=== PATIENT | male | born 1995 ===

== ENCOUNTER 2020-12-17 18:00 | Inpatient (IN) | payer SELFPAY ==
--- NOTE | 2020-12-17 18:31 | Event Note ---
ED Screening Note ED Screening Note: Patient is a 25-year-old male presents emergency room with complaints of URI symptoms that began a week ago He states he began feeling short of breath 3 days ago He has associated pain with breathing He states he also has some chest tightness He did not get vaccinated for COVID-19 No known past medical history No allergies to medicines He is a tobacco smoker He endorses alcohol use Upon ambulating patient his oxygen saturation drops to 88% and his heart rate increases to 120 On exam he has poor inspiration, no wheezing, no rales This initial assessment/diagnostic orders/clinical plan/treatment(s) is/are subject to change based on patients health status, clinical progression and re- assessment by fellow clinical providers in the ED. Further treatment and workup at subsequent clinical providers discretion. Patient/guardian urged not to elope from the ED as their condition may be serious if not clinically assessed and managed. Initial orders include: Labs, x-ray Patient placed on oxygen via nasal cannula Charge nurse Brigid informed patient needs room SAL
[2020-12-17 18:47] LABS: Basophils % (Auto) 0.1 % (0.0-1.8); Hematocrit 44.5 % (35.5-45.6); Hemoglobin 15.7 gm/dl (11.8-15.2); Lymphocytes # (Auto) 0.9 K/mm3 (1.2-5.4); Lymphocytes % (Auto) 18.6 % (13.4-35.0); Mean Corpuscular HGB Conc 35 % (32-34); Mean Corpuscular Volume 88 fl (84-94); Monocytes # (Auto) 0.4 K/mm3 (0.0-0.8); Monocytes % (Auto) 8.1 % (0.0-7.3); Platelet Count 171 K/mm3 (140-440); Red Blood Count 5.06 M/mm3 (3.65-5.03); Red Cell Distribution Width 12.9 % (13.2-15.2)
[2020-12-17 19:09] LABS: Alanine Aminotransferase 23 units/L (7-56); Albumin 3.9 g/dL (3.9-5); BUN/Creatinine Ratio 15; Blood Urea Nitrogen 12 mg/dL (9-20); Hemolysis Index 9
--- NOTE | 2020-12-17 19:15 | XRay Report ---
Chest 2 views INDICATION: Dyspnea IMPRESSION: Severe multifocal bilateral airspace pneumonia present. Suspect right-sided hilar adenopa thy. Close follow-up recommended. The heart size is normal. Signer Name: Eddi Tang MD Signed: 12/17/2020 7:10 PM Workstation Name: [id number]
[2020-12-17] MEDS ORDERED: dexAMETHasone 4 MG/ML VIAL IV ONE ×2 (19:20→21:30)
[2020-12-17] MEDS ORDERED: ACETAMINOPHEN 325 MG TAB PO ONE ×2 (19:20→21:30)
[2020-12-17] MEDS ORDERED: SODIUM CHLORIDE 0.9% 1000 ML 1,000 ML IV ONE (19:20)
[2020-12-17] MEDS ORDERED: AZITHROMYCIN/NS 500 MG/250 ML 500 MG/250 ML BAG IV ONE (19:20)
[2020-12-17] MEDS ORDERED: cefTRIAXone/NS 2 GM/100 ML 2 GM/100 ML BAG IV ONE (19:20)
[2020-12-17] MEDS ORDERED: KETOROLAC 30 MG/1 ML INJ IM ONE (21:42)
--- NOTE | 2020-12-17 21:52 | Emergency Department Report ---
HPI - General Chief Complaint: Dyspnea/Respdistress Time Seen by Provider: 12/17/20 18:28 - HPI HPI: 25-year-old male with no known past medical history presents complaining of 1 week of URI symptoms and 3 days of progressive shortness of breath. The patient states that approximately 1 week ago he began to experience fevers, body aches, headaches, diarrhea, and loss of his sense of smell and taste. These symptoms improved but then over the past 3 days he has developed a dry cough with worsening shortness of breath which is especially severe during exertion. The reason he came to the ER today was because of the shortness of breath. He is not vaccinated against COVID-19. There are no known aggravating or alleviating factors. He denies any associated vision change, neck pain, back pain, abdominal pain, nausea/vomiting, constipation, dysuria, focal weakness, sensory changes, leg swelling, or any other complaints. ED Past Medical Hx - Past Medical History Previous Medical History?: No - Social History Smoking Status: Current Every Day Smoker Substance Use Type: Alcohol ED Review of Systems ROS: Stated complaint: HARD TO BREATHE Other details as noted in HPI Constitutional: chills, fever, malaise Eyes: denies: eye pain, vision change ENT: denies: throat pain, congestion Respiratory: cough, shortness of breath, SOB with exertion Cardiovascular: denies: chest pain, palpitations, edema Gastrointestinal: diarrhea. denies: abdominal pain, nausea, vomiting, constipation Genitourinary: denies: dysuria, frequency Musculoskeletal: myalgia. denies: joint swelling, arthralgia Skin: denies: rash, lesions Neurological: headache. denies: weakness, numbness, paresthesias, abnormal gait Psychiatric: denies: anxiety Physical Exam - Physical Exam Vital Signs: Vital Signs 12/17/20 18:21 Temperature 99.7 F H Pulse Rate 110 H Respiratory 22 Rate Blood Pressure 140/85 O2 Sat by Pulse 95 Oximetry Physical Exam: GENERAL: Well developed and well nourished. No acute distress HEAD: Normocephalic. No obvious signs of trauma. ENT: Dry mucous membranes. EYES: Extraocular movements are intact. Pupils are equal round and reactive to light bilaterally NECK: Supple. Full ROM is intact. Trachea is midline. LUNGS: Tachypneic but not in respiratory distress. Equal chest rise bilate rally. There are scattered crackles, rhonchi, and wheezes throughout the bilateral lung bradshaw. CARDIOVASCULAR: Tachycardic but with regular rhythm. No murmurs or rubs. VASCULAR: Cap refill < 2 seconds. Trace edema bilaterally ABDOMEN: Abdomen is soft and nondistended. There is no significant tenderness, guarding or rebound. SKIN: Skin is warm and dry NEURO: Patient is awake, alert, and oriented. 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 No focal deficits. Normal motor and sensory exam throughout. Normal speech. MUSCULOSKELETAL: No obvious deformities. No significant tenderness. Normal ROM throughout. BACK/SPINE: No costovertebral angle tenderness. Exam ED Course Vital Signs 12/17/20 18:21 Temperature 99.7 F H Pulse Rate 110 H Respiratory 22 Rate Blood Pressure 140/85 O2 Sat by Pulse 95 Oximetry ED Medical Decision Making - Lab Data Result diagrams: 12/17/20 18:34 12/17/20 21:58 - Radiology Data Chest 2 views INDICATION: Dyspnea IMPRESSION: Severe multifocal bilateral airspace pneumonia present. Suspect right-sided hilar adenopathy. Close follow- up recommended. The heart size is normal. Signer Name: Eddi Tang MD Signed: 12/17/2020 6:10 PM Workstation Name: [id number] - Medical Decision Making 25-year-old male with no past medical history presents complaining of 1 week of URI symptoms and 3 days of progressive shortness of breath with dry cough. Patient has lost his sense of smell and taste. He is not vaccinated against COVID-19. Initial assessment, the patient is afebrile but with elevated heart rate of 110. His oxygen saturation on room air was 95% but with ambulation dropped to 88%. Oxygen was applied via nasal cannula. On physical exam, the patient has dry mucous membranes. He is tachypneic but not in respiratory distress. Lung auscultation reveals coarse breath sounds with scattered crackles and rhonchi throughout. He has no abdominal or CVA tenderness. He has no peripheral edema. Labs were drawn in triage and reveal no significant leukopenia/leukocytosis and elevated hemoglobin of 15.7 likely due to hemoconcentration due to dehydration. Kidney function is normal and there are no significant electrolyte abnormalities. Chest x-ray was performed and reveals severe multifocal bilateral airspace pneumonia present with suspected right- sided hilar adenopathy. Although the patient's symptoms and presentation suggests COVID-19 pneumonia, the hilar adenopathy is atypical and could be commercial sales representative of bacterial pneumonia as well. Patient was given 1 L of IV f luids, IV ceftriaxone, azithromycin, and dexamethasone. I have added on the sepsis order set with cultures. I have also added the COVID-19 order set including D-dimer to determine need for CTA. I have ordered Toradol because the patient says he has a mild headache. On repeat assessment at 11 PM the patient states he feels unchanged from when he first arrived. He is not in any acute distress. Further labs have returned revealing elevated CRP, ferritin, and LDH. However, lactate is normal and D-dimer is negative. I discussed with the patient the need for admission for supplemental oxygen, IV antibiotics, and further treatments for Covid if confirmed. The patient expressed understanding and agreement with the plan of care. At 11:15 PM I spoke with Bharati, the nurse practitioner working in conjunction with the on-call hospitalist Dr. Chambers regarding the case. The patient is acce pted for admission and the hospitalist team will assume care. Critical Care Time: Yes Critical care time in (mins) excluding proc time.: 40 Critical care attestation.: If time is entered above; I have spent that time in minutes in the direct care of this critically ill patient, excluding procedure time. Critical care time was spent in the evaluation/assessment, work-up, and management of suspected COVID-19 and bilateral pneumonia with hypoxia requiring supplemental oxygen, IV antibiotics and fluids, and frequent reevaluation and reassessment. ED Disposition Clinical Impression: Bilateral pneumonia, Suspected COVID-19 virus infection, Hypoxia Disposition: ADMITTED INPATIENT Is pt being admited?: Yes Condition: Fair
[2020-12-17 22:38] LABS: C-Reactive Protein 7.5 mg/dL (0.00-1.30)
[2020-12-17] MEDS ORDERED: ONDANSETRON 4 MG/2 ML INJ IV PRN (23:43)
[2020-12-17] MEDS ORDERED: ACETAMINOPHEN 325 MG TAB PO PRN (23:46)
[2020-12-17] MEDS ORDERED: ALBUTEROL 8.5 GM MDI INHALATION IH PRN (23:49)
--- NOTE | 2020-12-17 23:52 | History and Physical Report ---
History of Present Illness Date of examination: 12/17/20 Date of admission: 12/17/2020 Chief complaint: Shortness of breath, generalized weakness History of present illness: 25-year-old male who is an ongoing smoker with no past medical history who presents to [facility] ED with complaints of flu like symptoms and shortness of breath. Patient states that he has been experiencing fever, chills, body aches, diarrhea, loss of smell and taste x1 week. Approximately 3 days ago he developed progressively worsening shortness of breath at rest and exacerbated with exertion. Endorses none productive cough with associated pleuritic chest pain. Denies obstructive/restrictive lung disease. Patient is concerned that he has Covid 19, and decided to come in the ED for further evaluation and treatment. Denies constipation, abdominal pain, palpitations, chest pain, alterations in vision, recent fall/injury, sputum production, hemoptysis, hematemesis, melena, or known recent sick contacts Past History Past Surgical History: No surgical history Social history: single, lives with family, smoking, full code Family history: no significant family history Medications and Allergies Allergies Allergy/AdvReac Type Severity Reaction Status Date / Time No Known Allergies Allergy Verified 12/17/20 21:27 Review of Systems All systems: negative (As noted in HPI) Exam - Physical Exam Narrative exam: Physical exam General appearance: Present: Mild discomfort,, alert and oriented 3, adult male - EENT Eyes: Present: PERRL, EOM intact ENT: hearing intact, normal dentition - Neck Neck: Present: supple, normal ROM - Respiratory Respiratory effort: Non-labored, on 3 L supplemental oxygen Respiratory: Coarse breath sounds - Cardiovascular Heart rate: 110 (bpm) Rhythm: Sinus tachycardia Heart Sounds: Present: S1 & S2. Absent: rub, click - Extremities Extremities: no ischemia, pulses intact, - Peripheral Assessment Peripheral Pulses: within normal limits - Abdominal General gastrointestinal: soft, non-tender, normal bowel sounds - Integumentary Integumentary: Present: warm, dry - Musculoskeletal Musculoskeletal: Able to move all extremities -Neurological Neurological: CN II-XII intact - Psychiatric Psychiatric: cooperative - Constitutional Vitals: Temp Pulse Resp BP Pulse Ox 99.7 F H 110 H 18 140/85 95 12/17/20 18:21 12/17/20 18:21 12/17/20 21:39 12/17/20 18:21 12/17/20 18:21 Results - Labs CBC & Chem 7: 12/17/20 18:34 12/17/20 21:58 Labs: Laboratory Last Values WBC 4.9 K/mm3 (4.5-11.0) 12/17/20 18:34 RBC 5.06 M/mm3 (3.65-5.03) H 12/17/20 18:34 Hgb 15.7 gm/dl (11.8-15.2) H 12/17/20 18:34 Hct 44.5 % (35.5-45.6) 12/17/20 18:34 MCV 88 fl (84-94) 12/17/20 18:34 MCH 31 pg (28-32) 12/17/20 18:34 MCHC 35 % (32-34) H 12/17/20 18:34 RDW 12.9 % (13.2-15.2) L 12/17/20 18:34 Plt Count 171 K/mm3 (140-440) 12/17/20 18:34 Lymph % (Auto) 18.6 % (13.4-35.0) 12/17/20 18:34 [place] % (Auto) 8.1 % (0.0-7.3) H 12/17/20 18:34 Eos % (Auto) 0.0 % (0.0-4.3) 12/17/20 18:34 Baso % (Auto) 0.1 % (0.0-1.8) 12/17/20 18:34 Lymph # (Auto) 0.9 K/mm3 (1.2-5.4) L 12/17/20 18:34 [place] # (Auto) 0.4 K/mm3 (0.0-0.8) 12/17/20 18:34 Eos # (Auto) 0.0 K/mm3 (0.0-0.4) 12/17/20 18:34 Baso # (Auto) 0.0 K/mm3 (0.0-0.1) 12/17/20 18:34 Seg Neutrophils % 73.2 % (40.0-70.0) H 12/17/20 18:34 Seg Neutrophils # 3.6 K/mm3 (1.8-7.7) 12/17/20 18:34 D-Dimer 227.16 ng/mlDDU (0-234) 12/17/20 21:58 Sodium 136 mmol/L (137-145) L 12/17/20 18:34 Potassium 4.1 mmol/L (3.6-5.0) 12/17/20 18:34 Chloride 99.0 mmol/L (98-107) 12/17/20 18:34 Carbon Dioxide 25 mmol/L (22-30) 12/17/20 18:34 Anion Gap 16 mmol/L 12/17/20 18:34 BUN 12 mg/dL (9-20) 12/17/20 18:34 Creatinine 0.8 mg/dL (0.8-1.3) 12/17/20 18:34 Estimated GFR > 60 ml/min 12/17/20 18:34 BUN/Creatinine Ratio 15 % 12/17/20 18:34 Glucose 104 mg/dL (75-100) H 12/17/20 21:58 Lactic Acid 1.50 mmol/L (0.7-2.0) 12/17/20 21:58 Calcium 9.0 mg/dL (8.4-10.2) 12/17/20 18:34 Ferritin 481.5 ng/mL (30.0-300.0) H 12/17/20 21:58 Total Bilirubin 0.40 mg/dL (0.1-1.2) 12/17/20 18:34 AST 33 units/L (5-40) 12/17/20 18:34 ALT 23 units/L (7-56) 12/17/20 18:34 Alkaline Phosphatase 64 units/L (35-129) 12/17/20 18:34 Lactate Dehydrogenase 272 units/L (91-180) H 12/17/20 21:58 C-Reactive Protein 7.50 mg/dL (0.00-1.30) H 12/17/20 21:58 Total Protein 7.8 g/dL (6.3-8.2) 12/17/20 18:34 Albumin 3.9 g/dL (3.9-5) 12/17/20 18:34 Albumin/Globulin Ratio 1.0 % 12/17/20 18:34 - Imaging and Cardiology Imaging and Cardiology: CXR: INDICATION: Dyspnea IMPRESSION: Severe multifocal bilateral airspace pneumonia present. Suspect right-sided hilar adenopathy. Close follow-up recommended. The heart size is normal. Assessment and Plan Assessment and plan: Suspected COVID-19 viral infection -Complains of upper respiratory flulike symptoms x1 week, and worsening dyspnea x2 days -Unvaccinated -PCR pending -Inflammatory markers elevated -Follow-up on lab -Start zinc and vitamin D - ID consulted -May consider starting on Decadron if patient requires >4L supplemental oxygen Bilateral pneumonia -Chest x-ray shows Severe multifocal bilateral airspace pneumonia present -Started on IV azithromycin and Rocephin -Cultures pending Acute hypoxic respiratory failure -No Baseline home oxygen requirements -Saturation of 86 to percent on room air -Currently on 3L continuous supplemental O2 -Monitor saturations -Continue supplemental oxygen wean as tolerated -Albuterol MDI as needed Nicotine dependence -Current every day smoker -Counseled for cessation -Refused nicotine patch DVT PPX -on Lovenox Advance Directives: No VTE prophylaxis?: Chemical, Mechanical Plan of care discussed with patient/family: Yes
[2020-12-18] MEDS: guaiFENesin ER 600 MG TAB PO SCH ×2 (09:31→22:40)
[2020-12-18] MEDS: ZINC SULFATE 220 MG CAP PO SCH (09:31)
[2020-12-18] MEDS: ENOXAPARIN 40 MG/0.4 ML INJ SUB-Q SCH (09:31)
[2020-12-18] MEDS: DOCUSATE SODIUM 100 MG CAP PO SCH ×2 (09:31→22:40)
[2020-12-18] MEDS: CHOLECALCIFEROL (VIT D3) 5,000 UNIT TAB PO SCH (16:00)
--- NOTE | 2020-12-18 16:02 | Consultation ---
History of Present Illness - Reason for Consult Consult date: 12/18/20 - History of Present Illness 25-year-old male past medical history nicotine abuse presented to hospital complaining of shortness of breath. This is associated with fevers, chills, myalgias, typical Covid symptoms. Is shortness of breath became presently worse approximately 3 days ago. He was concerned that he contracted Covid, and as such came to the hospital. Afebrile since admission with a white count of 4.9. Covid positive. Normal renal function. Procalcitonin is pending. Elevated inflammatory markers. Cul tures no growth so far. Currently on ceftriaxone and azithromycin. Imaging personally reviewed: Chest x-ray: Severe multifocal bilateral airspace pneumonia. Review of systems: Deferred to reduce to the risk of transmission of COVID-19 Past History Past Surgical History: No surgical history Social history: single, lives with family, smoking, full code Family history: no significant family history Medications and Allergies Allergies Allergy/AdvReac Type Severity Reaction Status Date / Time No Known Allergies Allergy Verified 12/17/20 21:27 Active Meds: Active Medications Acetaminophen (Acetaminophen 325 Mg Tab) 650 mg PO Q4H PRN PRN Reason: Pain MILD(1-3)/Fever >100.5/ARCOS Albuterol (Albuterol 8.5 Gm Mdi Inhalation) 2 puff IH Q4HRT PRN PRN Reason: Shortness Of Breath Cholecalciferol (Cholecalciferol (Vit D3) 5,000 Unit Tab) 5,000 unit PO DAILY [facility] Docusate Sodium (Docusate Sodium 100 Mg Cap) 100 mg PO BID RACHEL Last Admin: 12/18/20 09:31 Dose: 100 mg Documented by: Enoxaparin Sodium (Enoxaparin 40 Mg/0.4 Ml Inj) 40 mg SUB-Q DAILY RACHEL; Protocol Last Admin: 12/18/20 09:31 Dose: 40 mg Documented by: Guaifenesin (Guaifenesin Er 600 Mg Tab) 600 mg PO BID RACHEL Last Admin: 12/18/20 09:31 Dose: 600 mg Documented by: Azithromycin (Zithromax/Ns) 500 mg in 250 mls @ 250 mls/hr IV Q24H RACHEL Stop: 12/21/20 22:59 Ceftriaxone Sodium (Rocephin/Ns 1 Gm/50 Ml) 1 gm in 50 mls @ 100 mls/hr IV Q24H [facility]; Protocol Stop: 12/21/20 22:29 Ondansetron HCl (Ondansetron 4 Mg/2 Ml Inj) 4 mg IV Q6H PRN PRN Reason: Nausea And Vomiting Oxycodone/Acetaminophen (Oxycodone /Acetaminophen 5-325mg Tab) 1 tab PO Q6H PRN PRN Reason: Pain, Moderate (4-6) Sodium Chloride (Sodium Chloride 0.9% 10 Ml Flush Syringe) 10 ml IV BID [facility] Last Admin: 12/18/20 09:31 Dose: 10 ml Documented by: Sodium Chloride (Sodium Chloride 0.9% 10 Ml Flush Syringe) 10 ml IV PRN PRN PRN Reason: LINE FLUSH Zinc Sulfate (Zinc Sulfate 220 Mg Cap) 220 mg PO QDAY [facility] Last Admin: 12/18/20 09:31 Dose: 220 mg Documented by: Physical Examination - Physical Exam Narrative exam: Physical exam deferred to reduce risk of transmission of COVID-19. Please refer to primary team's note. - Constitutional Vitals: Vital Signs Temp Pulse Resp BP Pulse Ox 98.6 F 67 26 H 115/70 98 12/18/20 15:19 12/18/20 14:00 12/18/20 14:00 12/18/20 14:00 12/18/20 14:00 Temperature -Last 24 Hours Temperature 98.6 F Temperature 97.8 F Temperature 99.7 F Results - Labs CBC & Chem 7: 12/17/20 18:34 12/17/20 21:58 Labs: Abnormal lab results 12/17/20 12/17/20 12/17/20 Range/Units 18:34 18:34 21:58 RBC 5.06 H (3.65-5.03) M/mm3 Hgb 15.7 H (11.8-15.2) gm/dl MCHC 35 H (32-34) % RDW 12.9 L (13.2-15.2) % [place] % (Auto) 8.1 H (0.0-7.3) % Lymph # (Auto) 0.9 L (1.2-5.4) K/mm3 Seg Neutrophils % 73.2 H (40.0-70.0) % Sodium 136 L (137-145) mmol/L Glucose 124 H 104 H (75-100) mg/dL Lactic Acid (0.7-2.0) mmol/L Ferritin (30.0-300.0) ng/mL Lactate Dehydrogenase 272 H (91-180) units/L C-Reactive Protein 7.50 H (0.00-1.30) mg/dL Coronavirus (PCR) (Negative) 12/17/20 12/18/20 12/18/20 Range/Units 21:58 00:22 Unknown RBC (3.65-5.03) M/mm3 Hgb (11.8-15.2) gm/dl MCHC (32-34) % RDW (13.2-15.2) % [place] % (Auto) (0.0-7.3) % Lymph # (Auto) (1.2-5.4) K/mm3 Seg Neutrophils % (40.0-70.0) % Sodium (137-145) mmol/L Glucose (75-100) mg/dL Lactic Acid 2.10 H* (0.7-2.0) mmol/L Ferritin 481.5 H (30.0-300.0) ng/mL Lactate Dehydrogenase (91-180) units/L C-Reactive Protein (0.00-1.30) mg/dL Coronavirus (PCR) Positive A (Negative) Assessment and Plan Cultures: Blood culture no growth so far Covid PCR:positive A/P: 25-year-old man past medical history nicotine abuse admitted with COVID-19 #Severe COVID-19 pneumonia: Patient presented with a week of symptoms, chest x- ray with diffuse bilateral infiltrates. Inflammatory markers elevated #Acute hypoxemic respiratory failure: Likely secondary to COVID-19 infection. Recs: -If hypoxic recommend starting steroids for 10 days -If requiring supplemental oxygen recommend Remdesivir for 5 days -Follow-up procalcitonin, stop antibiotics if <0.25 -Anticoagulation per hospital protocol -Proning as able Thank you for the consult, we will continue to follow. MD [facility] ([facility] O: [phone] F: [phone]
--- NOTE | 2020-12-18 18:55 | Progress Note ---
Assessment and Plan Assessment and plan: 25-year-old male who is an ongoing smoker with no past medical history who presents to [facility] ED with complaints of flu like symptoms and shortness of breath. Patient states that he has been experiencing fever, chills, body aches, diarrhea, loss of smell and taste x1 week. Approximately 3 days ago he developed progressively worsening shortness of breath at rest and exacerbated with exertion. Endorses none productive cough with associated pleuritic chest pain. Denies obstructive/restrictive lung disease. Patient is concerned that he has Covid 19, and decided to come in the ED for further evaluation and treatment. COVID-19 viral infection -Complains of upper respiratory flulike symptoms x1 week, and worsening dyspnea x2 days -Unvaccinated -Inflammatory markers elevated -Follow-up on lab -Start zinc and vitamin D - ID consulted -on Decadron Bilateral pneumonia -Chest x-ray shows Severe multifocal bilateral airspace pneumonia present -Started on IV azithromycin and Rocephin -Cultures pending Acute hypoxic respiratory failure -No Baseline home oxygen requirements -Saturation of 86 to percent on room air -Currently on 5L continuous supplemental O2 -Monitor saturations -Continue supplemental oxygen wean as tolerated -Albuterol MDI as needed Nicotine dependence -Current every day smoker -Counseled for cessation -Refused nicotine patch DVT PPX -on Lovenox 12/18/2020: Patient reports the onset of symptoms since 10 days and shortness of breath since 3 days. He is anorexic with cough and dyspnea. Poorly eating. O2 increased from 3 to 5 L currently. Has significant dyspnea with conversation. Patient will be monitored closely for worsening hypoxia and respiratory compensation. Continue supplemental oxygen, Decadron and incentive spirometry as tolerated. Consider remdesivir. ID consulted. Discussed with the patient and the nursing staff. History Interval history: Patient reports the onset of symptoms since 10 days and the dizziness since 3 days. He is anorexic with cough and dyspnea. Poorly eating. O2 increased from 3 to 5 L currently. Has significant dyspnea with conversation. Hospitalist Physical - Constitutional Vitals: Temp Pulse Resp BP Pulse Ox 98.6 F 98 H 17 133/82 95 12/18/20 15:19 12/18/20 17:00 12/18/20 17:00 12/18/20 17:00 12/18/20 17:00 General appearance: Present: well-nourished, other (Anxious at multiple respiratory distress) - EENT Eyes: Present: PERRL, EOM intact ENT: clear oral mucosa - Neck Neck: Present: supple. Absent: masses or JVD - Respiratory Respiratory effort: labored, other (Mild to moderate respiratory distress with conversation) Respiratory: bilateral: diminished - Cardiovascular Rhythm: regular - Extremities Extremities: No edema Peripheral Pulses: within normal limits - Abdominal General gastrointestinal: soft, non-tender, non-distended, normal bowel sounds - Integumentary Integumentary: Absent: rash - Psychiatric Psychiatric: other (Anxious) - Neurologic Neurologic: no focal deficits Results - Labs CBC & Chem 7: 12/17/20 18:34 12/20/20 04:56 Labs: Laboratory Last Values WBC 4.9 K/mm3 (4.5-11.0) 12/17/20 18:34 RBC 5.06 M/mm3 (3.65-5.03) H 12/17/20 18:34 Hgb 15.7 gm/dl (11.8-15.2) H 12/17/20 18:34 Hct 44.5 % (35.5-45.6) 12/17/20 18:34 MCV 88 fl (84-94) 12/17/20 18:34 MCH 31 pg (28-32) 12/17/20 18:34 MCHC 35 % (32-34) H 12/17/20 18:34 RDW 12.9 % (13.2-15.2) L 12/17/20 18:34 Plt Count 171 K/mm3 (140-440) 12/17/20 18:34 Lymph % (Auto) 18.6 % (13.4-35.0) 12/17/20 18:34 [place] % (Auto) 8.1 % (0.0-7.3) H 12/17/20 18:34 Eos % (Auto) 0.0 % (0.0-4.3) 12/17/20 18:34 Baso % (Auto) 0.1 % (0.0-1.8) 12/17/20 18:34 Lymph # (Auto) 0.9 K/mm3 (1.2-5.4) L 12/17/20 18:34 [place] # (Auto) 0.4 K/mm3 (0.0-0.8) 12/17/20 18:34 Eos # (Auto) 0.0 K/mm3 (0.0-0.4) 12/17/20 18:34 Baso # (Auto) 0.0 K/mm3 (0.0-0.1) 12/17/20 18:34 Seg Neutrophils % 73.2 % (40.0-70.0) H 12/17/20 18:34 Seg Neutrophils # 3.6 K/mm3 (1.8-7.7) 12/17/20 18:34 D-Dimer 227.16 ng/mlDDU (0-234) 12/17/20 21:58 Sodium 136 mmol/L (137-145) L 12/17/20 18:34 Potassium 4.1 mmol/L (3.6-5.0) 12/17/20 18:34 Chloride 99.0 mmol/L (98-107) 12/17/20 18:34 Carbon Dioxide 25 mmol/L (22-30) 12/17/20 18:34 Anion Gap 16 mmol/L 12/17/20 18:34 BUN 12 mg/dL (9-20) 12/17/20 18:34 Creatinine 0.8 mg/dL (0.8-1.3) 12/17/20 18:34 Estimated GFR > 60 ml/min 12/17/20 18:34 BUN/Creatinine Ratio 15 % 12/17/20 18:34 Glucose 104 mg/dL (75-100) H 12/17/20 21:58 Lactic Acid 1.40 mmol/L (0.7-2.0) 12/18/20 08:44 Calcium 9.0 mg/dL (8.4-10.2) 12/17/20 18:34 Ferritin 481.5 ng/mL (30.0-300.0) H 12/17/20 21:58 Total Bilirubin 0.40 mg/dL (0.1-1.2) 12/17/20 18:34 AST 33 units/L (5-40) 12/17/20 18:34 ALT 23 units/L (7-56) 12/17/20 18:34 Alkaline Phosphatase 64 units/L (35-129) 12/17/20 18:34 Lactate Dehydrogenase 272 units/L (91-180) H 12/17/20 21:58 C-Reactive Protein 7.50 mg/dL (0.00-1.30) H 12/17/20 21:58 Total Protein 7.8 g/dL (6.3-8.2) 12/17/20 18:34 Albumin 3.9 g/dL (3.9-5) 12/17/20 18:34 Albumin/Globulin Ratio 1.0 % 12/17/20 18:34 Procalcitonin < 0.05 ng/mL (<0.15) 12/17/20 21:58 Coronavirus (PCR) Positive (Negative) A 12/18/20 Unknown Microbiology: Microbiology 12/17/20 21:58 Peripheral/Venous Blood Culture - Preliminary Culture in Progress 12/17/20 21:58 Peripheral/Venous Blood Culture - Preliminary Culture in Progress Active Medications - Current Medications Current Medications: Generic Name Dose Route Start Last Admin Trade Name Freq PRN Reason Stop Dose Admin Acetaminophen 650 mg 12/17/20 23:46 Acetaminophen 325 Mg Tab PO Q4H PRN Pain MILD(1-3)/Fever >100.5/ARCOS Albuterol 2 puff 12/17/20 23:49 Albuterol 8.5 Gm Mdi Inhalation IH Q4HRT PRN Shortness Of Breath Cholecalciferol 5,000 unit 12/18/20 10:00 12/18/20 16:00 Cholecalciferol (Vit D3) 5,000 Unit Tab PO 5,000 unit DAILY RACHEL Administration Docusate Sodium 100 mg 12/18/20 10:00 12/18/20 09:31 Docusate Sodium 100 Mg Cap PO 100 mg BID RACHEL Administration Enoxaparin Sodium 40 mg 12/18/20 10:00 12/18/20 09:31 Enoxaparin 40 Mg/0.4 Ml Inj SUB-Q 40 mg DAILY RACHEL Administration Protocol Guaifenesin 600 mg 12/18/20 10:00 12/18/20 09:31 Guaifenesin Er 600 Mg Tab PO 600 mg BID RACHEL Administration Azithromycin 500 mg in 250 mls @ 250 mls/hr 12/18/20 22:00 Zithromax/Ns IV 12/21/20 22:59 Q24H RACHEL Ceftriaxone Sodium 1 gm in 50 mls @ 100 mls/hr 12/18/20 22:00 Rocephin/Ns 1 Gm/50 Ml IV 12/21/20 22:29 Q24H RACHEL Protocol Ondansetron HCl 4 mg 12/17/20 23:43 Ondansetron 4 Mg/2 Ml Inj IV Q6H PRN Nausea And Vomiting Oxycodone/Acetaminophen 1 tab 12/17/20 23:44 Oxycodone /Acetaminophen 5-325mg Tab PO Q6H PRN Pain, Moderate (4-6) Sodium Chloride 10 ml 12/18/20 10:00 12/18/20 09:31 Sodium Chloride 0.9% 10 Ml Flush Syringe IV 10 ml BID RACHEL Administration Sodium Chloride 10 ml 12/17/20 23:46 Sodium Chloride 0.9% 10 Ml Flush Syringe IV PRN PRN LINE FLUSH Zinc Sulfate 220 mg 12/18/20 10:00 12/18/20 09:31 Zinc Sulfate 220 Mg Cap PO 220 mg QDAY RACHEL Administration
[2020-12-18] MEDS ORDERED: AZITHROMYCIN/NS 500 MG/250 ML 500 MG/250 ML BAG IV SCH (22:00)
[2020-12-18] MEDS ORDERED: cefTRIAXone/NS 1 GM/50 ML 1 GM/50 ML BAG IV SCH (22:00)
[2020-12-18] MEDS: oxyCODONE /ACETAMINOPHEN 5-325MG TAB PO PRN (22:41)
[2020-12-19 07:20] LABS: Bilirubin,Urine NEG (Negative); Blood,Urine NEG (Negative); Color,Urine Yellow (Yellow); Mucus,Urine 3+ /HPF; Urobilinogen,Urine < 2.0 mg/dL (<2.0)
[2020-12-19] MEDS: DOCUSATE SODIUM 100 MG CAP PO SCH ×2 (10:42→21:33)
[2020-12-19] MEDS: ZINC SULFATE 220 MG CAP PO SCH (10:42)
[2020-12-19] MEDS: guaiFENesin ER 600 MG TAB PO SCH ×2 (10:42→21:33)
[2020-12-19] MEDS: ENOXAPARIN 40 MG/0.4 ML INJ SUB-Q SCH (10:43)
[2020-12-19] MEDS ORDERED: REMDESIVIR 200 MG in SODIUM CHLORIDE 0.9% 250ML 250 ML IV ONE (11:00)
[2020-12-19 11:03] LABS: Alanine Aminotransferase 33 units/L (7-56); Albumin 3.4 g/dL (3.9-5); BUN/Creatinine Ratio 18; Blood Urea Nitrogen 14 mg/dL (9-20); Calcium 8.8 mg/dL (8.4-10.2); Hemolysis Index 1
--- NOTE | 2020-12-19 11:20 | Progress Note ---
Assessment and Plan Cultures: Blood culture no growth so far Covid PCR:positive A/P: 25-year-old man past medical history nicotine abuse admitted with COVID-19 #Severe COVID-19 pneumonia: Patient presented with a week of symptoms, chest x- ray with diffuse bilateral infiltrates. Inflammatory markers elevated #Acute hypoxemic respiratory failure: Likely secondary to COVID-19 infection. Recs: -If hypoxic recommend starting steroids for 10 days -If requiring supplemental oxygen recommend Remdesivir for 5 days -Procalcitonin low, antibiotics stopped -Anticoagulation per hospital protocol -Proning as able Thank you for the consult, we will continue to follow. Mike Brown MD [facility] ([facility] O: [phone] F: [phone] Subjective Date of service: 12/19/20 Interval history: Febrile last night to 100.4. No new issues. Objective - Exam Narrative Exam: Physical exam deferred to reduce risk of transmission of COVID-19. Please refer to primary team's note. - Constitutional Vitals: Vital Signs Temp Pulse Resp BP Pulse Ox 100.4 F H 87 36 H 120/72 95 12/18/20 23:49 12/19/20 07:00 12/19/20 07:00 12/19/20 07:00 12/19/20 07:00 Temperature -Last 24 Hours Temperature 100.4 F Temperature 98.6 F - Labs CBC & Chem 7: 12/17/20 18:34 12/19/20 10:29 Labs: Abnormal lab results 12/18/20 12/19/20 Range/Units Unknown 10:29 Glucose 106 H (75-100) mg/dL Albumin 3.4 L (3.9-5) g/dL Coronavirus (PCR) Positive A (Negative)
[2020-12-19] MEDS: CHOLECALCIFEROL (VIT D3) 5,000 UNIT TAB PO SCH (11:38)
[2020-12-19] MEDS: SODIUM CHLORIDE 0.9% 50 ML IVPB IV SCH (12:29)
[2020-12-19] MEDS: oxyCODONE /ACETAMINOPHEN 5-325MG TAB PO PRN (14:43)
--- NOTE | 2020-12-19 19:14 | Progress Note ---
Assessment and Plan Assessment and plan: 25-year-old male who is an ongoing smoker with no past medical history who presents to [facility] ED with complaints of flu like symptoms and shortness of breath. Patient states that he has been experiencing fever, chills, body aches, diarrhea, loss of smell and taste x1 week. Approximately 3 days ago he developed progressively worsening shortness of breath at rest and exacerbated with exertion. Endorses none productive cough with associated pleuritic chest pain. Denies obstructive/restrictive lung disease. Patient is concerned that he has Covid 19, and decided to come in the ED for further evaluation and treatment. COVID-19 viral infection -Complains of upper respiratory flulike symptoms x1 week, and worsening dyspnea x2 days -Unvaccinated -Inflammatory markers elevated -Follow-up on lab -Start zinc and vitamin D - ID consulted -on Decadron Bilateral pneumonia -Chest x-ray shows Severe multifocal bilateral airspace pneumonia present -Started on IV azithromycin and Rocephin -Cultures pending Acute hypoxic respiratory failure -No Baseline home oxygen requirements -Saturation of 86 to percent on room air -Currently on 5L continuous supplemental O2 -Monitor saturations -Continue supplemental oxygen wean as tolerated -Albuterol MDI as needed Nicotine dependence -Current every day smoker -Counseled for cessation -Refused nicotine patch DVT PPX -on Lovenox 12/18/2020: Patient reports the onset of symptoms since 10 days and shortness of breath since 3 days. He is anorexic with cough and dyspnea. Poorly eating. O2 increased from 3 to 5 L currently. Has significant dyspnea with conversation. Patient will be monitored closely for worsening hypoxia and respiratory compensation. Continue supplemental oxygen, Decadron and incentive spirometry as tolerated. Consider remdesivir. ID consulted. Discussed with the patient and the nursing staff. 12/19/2020: Patient is experiencing moderate difficulty breathing. Became her hypoxic and able to increased from 3 to 10 L. Currently weaned back to 4 L. In moderate respiratory distress with talking. Unable to tolerate exertion. Not able to eat due to dyspnea. Desaturating with cough spells. Remdesivir sta rted. Otherwise hemodynamically stable. Mentating well. Needs to be monitored closely for further worsening of hypoxia and respiratory decompensation. Appears to be a candidate for Actemra and await ID recommendations who is following. Discussed the patient. History Interval history: Patient is experiencing moderate difficulty breathing. Became her hypoxic and able to increased from 3 to 10 L. Currently weaned back to 4 L. In moderate respiratory distress with talking. Unable to tolerate exertion. Not able to eat due to dyspnea. Desaturating with cough spells. Remdesivir started. Otherwise hemodynamically stable. Mentating well. Hospitalist Physical - Constitutional Vitals: Temp Pulse Resp BP Pulse Ox 98.7 F 85 20 115/70 99 12/19/20 15:15 12/19/20 15:15 12/19/20 18:55 12/19/20 15:15 12/19/20 18:55 General appearance: Present: well-nourished, other (Moderate respiratory distress at rest) - EENT Eyes: Present: PERRL, EOM intact ENT: clear oral mucosa - Neck Neck: Present: supple. Absent: masses or JVD - Respiratory Respiratory effort: labored, other (Moderate respiratory distress at rest) Respiratory: bilateral: diminished - Cardiovascular Rhythm: regular - Extremities Extremities: No edema Peripheral Pulses: within normal limits - Abdominal General gastrointestinal: soft, non-tender, non-distended, normal bowel sounds - Integumentary Integumentary: Absent: rash - Psychiatric Psychiatric: other (Anxious) - Neurologic Neurologic: no focal deficits Results - Labs CBC & Chem 7: 12/17/20 18:34 12/20/20 04:56 Labs: Laboratory Last Values WBC 4.9 K/mm3 (4.5-11.0) 12/17/20 18:34 RBC 5.06 M/mm3 (3.65-5.03) H 12/17/20 18:34 Hgb 15.7 gm/dl (11.8-15.2) H 12/17/20 18:34 Hct 44.5 % (35.5-45.6) 12/17/20 18:34 MCV 88 fl (84-94) 12/17/20 18:34 MCH 31 pg (28-32) 12/17/20 18:34 MCHC 35 % (32-34) H 12/17/20 18:34 RDW 12.9 % (13.2-15.2) L 12/17/20 18:34 Plt Count 171 K/mm3 (140-440) 12/17/20 18:34 Lymph % (Auto) 18.6 % (13.4-35.0) 12/17/20 18:34 [place] % (Auto) 8.1 % (0.0-7.3) H 12/17/20 18:34 Eos % (Auto) 0.0 % (0.0-4.3) 12/17/20 18:34 Baso % (Auto) 0.1 % (0.0-1.8) 12/17/20 18:34 Lymph # (Auto) 0.9 K/mm3 (1.2-5.4) L 12/17/20 18:34 [place] # (Auto) 0.4 K/mm3 (0.0-0.8) 12/17/20 18:34 Eos # (Auto) 0.0 K/mm3 (0.0-0.4) 12/17/20 18:34 Baso # (Auto) 0.0 K/mm3 (0.0-0.1) 12/17/20 18:34 Seg Neutrophils % 73.2 % (40.0-70.0) H 12/17/20 18:34 Seg Neutrophils # 3.6 K/mm3 (1.8-7.7) 12/17/20 18:34 D-Dimer 227.16 ng/mlDDU (0-234) 12/17/20 21:58 Sodium 139 mmol/L (137-145) 12/19/20 10:29 Potassium 4.2 mmol/L (3.6-5.0) 12/19/20 10:29 Chloride 101.9 mmol/L (98-107) 12/19/20 10:29 Carbon Dioxide 30 mmol/L (22-30) 12/19/20 10:29 Anion Gap 11 mmol/L 12/19/20 10:29 BUN 14 mg/dL (9-20) 12/19/20 10:29 Creatinine 0.8 mg/dL (0.8-1.3) 12/19/20 10:29 Estimated GFR > 60 ml/min 12/19/20 10:29 BUN/Creatinine Ratio 18 % 12/19/20 10:29 Glucose 106 mg/dL (75-100) H 12/19/20 10:29 Lactic Acid 1.40 mmol/L (0.7-2.0) 12/18/20 08:44 Calcium 8.8 mg/dL (8.4-10.2) 12/19/20 10:29 Ferritin 481.5 ng/mL (30.0-300.0) H 12/17/20 21:58 Total Bilirubin 0.30 mg/dL (0.1-1.2) 12/19/20 10:29 AST 30 units/L (5-40) 12/19/20 10:29 ALT 33 units/L (7-56) 12/19/20 10:29 Alkaline Phosphatase 55 units/L (35-129) 12/19/20 10:29 Lactate Dehydrogenase 272 units/L (91-180) H 12/17/20 21:58 C-Reactive Protein 7.50 mg/dL (0.00-1.30) H 12/17/20 21:58 Total Protein 7.0 g/dL (6.3-8.2) 12/19/20 10:29 Albumin 3.4 g/dL (3.9-5) L 12/19/20 10:29 Albumin/Globulin Ratio 0.9 % 12/19/20 10:29 Procalcitonin < 0.05 ng/mL (<0.15) 12/17/20 21:58 Urine Color Yellow (Yellow) 12/19/20 06:55 Urine Turbidity Clear (Clear) 12/19/20 06:55 Urine pH 6.0 (5.0-7.0) 12/19/20 06:55 Ur Specific [place] 1.028 (1.003-1.030) 12/19/20 06:55 Urine Protein 30 mg/dl mg/dL (Negative) 12/19/20 06:55 Urine Glucose (UA) Neg mg/dL (Negative) 12/19/20 06:55 Urine Ketones Neg mg/dL (Negative) 12/19/20 06:55 Urine Blood Neg (Negative) 12/19/20 06:55 Urine Nitrite Neg (Negative) 12/19/20 06:55 Urine Bilirubin Neg (Negative) 12/19/20 06:55 Urine Urobilinogen < 2.0 mg/dL (<2.0) 12/19/20 06:55 Ur Leukocyte Esterase Neg (Negative) 12/19/20 06:55 Urine WBC (Auto) 2.0 /HPF (0.0-6.0) 12/19/20 06:55 Urine RBC (Auto) 3.0 /HPF (0.0-6.0) 12/19/20 06:55 Urine Mucus 3+ /HPF 12/19/20 06:55 Coronavirus (PCR) Positive (Negative) A 12/18/20 Unknown Microbiology: Microbiology 12/17/20 21:58 Peripheral/Venous Blood Culture - Preliminary NO GROWTH AFTER 24 HOURS 12/17/20 21:58 Peripheral/Venous Blood Culture - Preliminary NO GROWTH AFTER 24 HOURS Sorto/IV: Voiding Method Urinal Active Medications - Current Medications Current Medications: Generic Name Dose Route Start Last Admin Trade Name Freq PRN Reason Stop Dose Admin Acetaminophen 650 mg 12/17/20 23:46 Acetaminophen 325 Mg Tab PO Q4H PRN Pain MILD(1-3)/Fever >100.5/ARCOS Albuterol 2 puff 12/17/20 23:49 Albuterol 8.5 Gm Mdi Inhalation IH Q4HRT PRN Shortness Of Breath Cholecalciferol 5,000 unit 12/18/20 10:00 12/19/20 11:38 Cholecalciferol (Vit D3) 5,000 Unit Tab PO 5,000 unit DAILY [facility] Administration Docusate Sodium 100 mg 12/18/20 10:00 12/19/20 10:42 Docusate Sodium 100 Mg Cap PO 100 mg BID RACHEL Administration Enoxaparin Sodium 40 mg 12/18/20 10:00 12/19/20 10:43 Enoxaparin 40 Mg/0.4 Ml Inj SUB-Q 40 mg DAILY RACHEL Administration Protocol Guaifenesin 600 mg 12/18/20 10:00 12/19/20 10:42 Guaifenesin Er 600 Mg Tab PO 600 mg BID RACHEL Administration REMDESIVIR 100 mg/ Sodium 250 mls @ 500 mls/hr 12/20/20 21:00 Chloride IV 12/23/20 21:29 Q24HR@2100 RACHEL Ondansetron HCl 4 mg 12/17/20 23:43 Ondansetron 4 Mg/2 Ml Inj IV Q6H PRN Nausea And Vomiting Oxycodone/Acetaminophen 1 tab 12/17/20 23:44 12/19/20 14:43 Oxycodone /Acetaminophen 5-325mg Tab PO 1 tab Q6H PRN Administration Pain, Moderate (4-6) Sodium Chloride 10 ml 12/18/20 10:00 12/19/20 11:38 Sodium Chloride 0.9% 10 Ml Flush Syringe IV Not Given BID RACHEL Sodium Chloride 10 ml 12/17/20 23:46 Sodium Chloride 0.9% 10 Ml Flush Syringe IV PRN PRN LINE FLUSH Sodium Chloride 50 ml 12/19/20 12:00 12/19/20 12:29 Sodium Chloride 0.9% 50 Ml Ivpb IV 12/23/20 21:01 Not Given Q24HR@2100 RACHEL Zinc Sulfate 220 mg 12/18/20 10:00 12/19/20 10:42 Zinc Sulfate 220 Mg Cap PO 220 mg QDAY RACHEL Administration
[2020-12-20 06:12] LABS: Alanine Aminotransferase 41 units/L (7-56); Albumin 3.4 g/dL (3.9-5); Blood Urea Nitrogen 13 mg/dL (9-20); Calcium 9.1 mg/dL (8.4-10.2); Hemolysis Index 7
[2020-12-20 06:14] LABS: BUN/Creatinine Ratio 19
--- NOTE | 2020-12-20 08:22 | Progress Note ---
Assessment and Plan Assessment and plan: --COVID-19 infection; Unvaccinated patient Continue isolation ID following Continue management per COVID-19 guidelines Hypoxia requiring 3 L of nasal cannula oxygen At dexamethasone, continue remdesivir per protocol Inflammatory markers Prone positioning Home O2 evaluation Supportive medications zinc vitamin D and vitamin C --Bilateral pneumonia Chest x-ray shows Severe multifocal bilateral airspace pneumonia present Empiric antibiotics discontinued as procalcitonin is normal Follow cultures supportive care --Acute hypoxic respiratory failure -No Baseline home oxygen requirements -Saturation of 86 to percent on room air -Currently on 3L continuous supplemental O2 Add dexamethasone 6 mg for 10 days Home O2 evaluation --Nicotine dependence Smoking cessation counseling done Nicotine patch as needed --DVT prophylaxis PPX Continue subcu Lovenox Continue guideline therapy for COVID-19, follow clinically DC planning per case management when patient is stable Plan of care reviewed with the patient and his nurse 12/18/2020: Patient reports the onset of symptoms since 10 days and shortness of breath since 3 days. He is anorexic with cough and dyspnea. Poorly eating. O2 increased from 3 to 5 L currently. Has significant dyspnea with conversation. Patient will be monitored closely for worsening hypoxia and respiratory compensation. Continue supplemental oxygen, Decadron and incentive spirometry as tolerated. Consider remdesivir. ID consulted. Discussed with the patient and the nursing staff. 12/19/2020: Patient is experiencing moderate difficulty breathing. Became her hypoxic and able to increased from 3 to 10 L. Currently weaned back to 4 L. In moderate respiratory distress with talking. Unable to tolerate exertion. Not able to eat due to dyspnea. Desaturating with cough spells. Remdesivir started. Otherwise hemodynamically stable. Mentating well. Needs to be monitored closely for further worsening of hypoxia and respiratory decompensation. Appears to be a candidate for Actemra and await ID recommendations who is following. Discussed the patient. 12/20/2020; patient is on 3 L of nasal cannula oxygen, on steroids and remdesivir Closely monitor, follow inflammatory markers Prone positioning; Home O2 evaluation History Interval history: Seen and examined the patient at the bedside today Isolation precautions COVID-19 protocols strictly follow Patient complains of shortness of breath Generalized weakness Hospitalist Physical - Constitutional Vitals: Temp Pulse Resp BP Pulse Ox 98.6 F 69 18 111/70 99 12/20/20 04:21 12/20/20 04:21 12/20/20 04:21 12/20/20 04:21 12/20/20 04:21 General appearance: Present: no acute distress, well-nourished, other (Anxious at multiple respiratory distress) - EENT Eyes: Present: PERRL, EOM intact - Neck Neck: Present: supple, normal ROM - Respiratory Respiratory effort: normal Respiratory: bilateral: rales, wheezing, negative: diminished, rhonchi - Cardiovascular Rhythm: regular Heart Sounds: Present: S1 & S2 - Extremities Extremities: no ischemia, No edema - Abdominal General gastrointestinal: soft, non-tender, non-distended, normal bowel sounds - Integumentary Integumentary: Present: clear, warm - Psychiatric Psychiatric: appropriate mood/affect, cooperative - Neurologic Neurologic: CNII-XII intact, moves all extremities Results - Labs CBC & Chem 7: 12/17/20 18:34 12/20/20 04:56 Labs: Laboratory Last Values WBC 4.9 K/mm3 (4.5-11.0) 12/17/20 18:34 RBC 5.06 M/mm3 (3.65-5.03) H 12/17/20 18:34 Hgb 15.7 gm/dl (11.8-15.2) H 12/17/20 18:34 Hct 44.5 % (35.5-45.6) 12/17/20 18:34 MCV 88 fl (84-94) 12/17/20 18:34 MCH 31 pg (28-32) 12/17/20 18:34 MCHC 35 % (32-34) H 12/17/20 18:34 RDW 12.9 % (13.2-15.2) L 12/17/20 18:34 Plt Count 171 K/mm3 (140-440) 12/17/20 18:34 Lymph % (Auto) 18.6 % (13.4-35.0) 12/17/20 18:34 [place] % (Auto) 8.1 % (0.0-7.3) H 12/17/20 18:34 Eos % (Auto) 0.0 % (0.0-4.3) 12/17/20 18:34 Baso % (Auto) 0.1 % (0.0-1.8) 12/17/20 18:34 Lymph # (Auto) 0.9 K/mm3 (1.2-5.4) L 12/17/20 18:34 [place] # (Auto) 0.4 K/mm3 (0.0-0.8) 12/17/20 18:34 Eos # (Auto) 0.0 K/mm3 (0.0-0.4) 12/17/20 18:34 Baso # (Auto) 0.0 K/mm3 (0.0-0.1) 12/17/20 18:34 Seg Neutrophils % 73.2 % (40.0-70.0) H 12/17/20 18:34 Seg Neutrophils # 3.6 K/mm3 (1.8-7.7) 12/17/20 18:34 D-Dimer 227.16 ng/mlDDU (0-234) 12/17/20 21:58 Sodium 139 mmol/L (137-145) 12/20/20 04:56 Potassium 3.9 mmol/L (3.6-5.0) 12/20/20 04:56 Chloride 100.6 mmol/L (98-107) 12/20/20 04:56 Carbon Dioxide 31 mmol/L (22-30) H 12/20/20 04:56 Anion Gap 11 mmol/L 12/20/20 04:56 BUN 13 mg/dL (9-20) 12/20/20 04:56 Creatinine 0.7 mg/dL (0.8-1.3) L 12/20/20 04:56 Estimated GFR > 60 ml/min 12/20/20 04:56 BUN/Creatinine Ratio 19 % 12/20/20 04:56 Glucose 113 mg/dL (75-100) H 12/20/20 04:56 Lactic Acid 1.40 mmol/L (0.7-2.0) 12/18/20 08:44 Calcium 9.1 mg/dL (8.4-10.2) 12/20/20 04:56 Ferritin 481.5 ng/mL (30.0-300.0) H 12/17/20 21:58 Total Bilirubin 0.40 mg/dL (0.1-1.2) 12/20/20 04:56 AST 36 units/L (5-40) 12/20/20 04:56 ALT 41 units/L (7-56) 12/20/20 04:56 Alkaline Phosphatase 62 units/L (35-129) 12/20/20 04:56 Lactate Dehydrogenase 272 units/L (91-180) H 12/17/20 21:58 C-Reactive Protein 7.50 mg/dL (0.00-1.30) H 12/17/20 21:58 Total Protein 7.0 g/dL (6.3-8.2) 12/20/20 04:56 Albumin 3.4 g/dL (3.9-5) L 12/20/20 04:56 Albumin/Globulin Ratio 0.9 % 12/20/20 04:56 Procalcitonin < 0.05 ng/mL (<0.15) 12/17/20 21:58 Urine Color Yellow (Yellow) 12/19/20 06:55 Urine Turbidity Clear (Clear) 12/19/20 06:55 Urine pH 6.0 (5.0-7.0) 12/19/20 06:55 Ur Specific [place] 1.028 (1.003-1.030) 12/19/20 06:55 Urine Protein 30 mg/dl mg/dL (Negative) 12/19/20 06:55 Urine Glucose (UA) Neg mg/dL (Negative) 12/19/20 06:55 Urine Ketones Neg mg/dL (Negative) 12/19/20 06:55 Urine Blood Neg (Negative) 12/19/20 06:55 Urine Nitrite Neg (Negative) 12/19/20 06:55 Urine Bilirubin Neg (Negative) 12/19/20 06:55 Urine Urobilinogen < 2.0 mg/dL (<2.0) 12/19/20 06:55 Ur Leukocyte Esterase Neg (Negative) 12/19/20 06:55 Urine WBC (Auto) 2.0 /HPF (0.0-6.0) 12/19/20 06:55 Urine RBC (Auto) 3.0 /HPF (0.0-6.0) 12/19/20 06:55 Urine Mucus 3+ /HPF 12/19/20 06:55 Coronavirus (PCR) Positive (Negative) A 12/18/20 Unknown Microbiology: Microbiology 12/17/20 21:58 Peripheral/Venous Blood Culture - Preliminary NO GROWTH AFTER 48 HOURS 12/17/20 21:58 Peripheral/Venous Blood Culture - Preliminary NO GROWTH AFTER 48 HOURS Sorto/IV: Voiding Method Urinal Active Medications - Current Medications Current Medications: Generic Name Dose Route Start Last Admin Trade Name Freq PRN Reason Stop Dose Admin Acetaminophen 650 mg 12/17/20 23:46 Acetaminophen 325 Mg Tab PO Q4H PRN Pain MILD(1-3)/Fever >100.5/ARCOS Albuterol 2 puff 12/17/20 23:49 Albuterol 8.5 Gm Mdi Inhalation IH Q4HRT PRN Shortness Of Breath Cholecalciferol 5,000 unit 12/18/20 10:00 12/19/20 11:38 Cholecalciferol (Vit D3) 5,000 Unit Tab PO 5,000 unit DAILY RACHEL Administration Docusate Sodium 100 mg 12/18/20 10:00 12/19/20 21:33 Docusate Sodium 100 Mg Cap PO 100 mg BID RACHEL Administration Enoxaparin Sodium 40 mg 12/18/20 10:00 12/19/20 10:43 Enoxaparin 40 Mg/0.4 Ml Inj SUB-Q 40 mg DAILY RACHEL Administration Protocol Guaifenesin 600 mg 12/18/20 10:00 12/19/20 21:33 Guaifenesin Er 600 Mg Tab PO 600 mg BID RACHEL Administration REMDESIVIR 100 mg/ Sodium 250 mls @ 500 mls/hr 12/20/20 21:00 Chloride IV 12/23/20 21:29 Q24HR@2100 RACHEL Ondansetron HCl 4 mg 12/17/20 23:43 Ondansetron 4 Mg/2 Ml Inj IV Q6H PRN Nausea And Vomiting Oxycodone/Acetaminophen 1 tab 12/17/20 23:44 12/19/20 14:43 Oxycodone /Acetaminophen 5-325mg Tab PO 1 tab Q6H PRN Administration Pain, Moderate (4-6) Sodium Chloride 10 ml 12/18/20 10:00 12/19/20 21:33 Sodium Chloride 0.9% 10 Ml Flush Syringe IV 10 ml BID RACHEL Administration Sodium Chloride 10 ml 12/17/20 23:46 Sodium Chloride 0.9% 10 Ml Flush Syringe IV PRN PRN LINE FLUSH Sodium Chloride 50 ml 12/19/20 12:00 12/19/20 12:29 Sodium Chloride 0.9% 50 Ml Ivpb IV 12/23/20 21:01 Not Given Q24HR@2100 RACHEL Zinc Sulfate 220 mg 12/18/20 10:00 12/19/20 10:42 Zinc Sulfate 220 Mg Cap PO 220 mg QDAY RACHEL Administration
[2020-12-20] MEDS: CHOLECALCIFEROL (VIT D3) 5,000 UNIT TAB PO SCH (10:16)
[2020-12-20] MEDS: guaiFENesin ER 600 MG TAB PO SCH ×2 (10:16→21:12)
[2020-12-20] MEDS: ZINC SULFATE 220 MG CAP PO SCH (10:16)
[2020-12-20] MEDS: DOCUSATE SODIUM 100 MG CAP PO SCH ×2 (10:16→21:12)
[2020-12-20] MEDS: ENOXAPARIN 40 MG/0.4 ML INJ SUB-Q SCH (10:16)
[2020-12-20] MEDS: dexAMETHasone 4 MG/ML VIAL IV SCH (10:16)
--- NOTE | 2020-12-20 10:46 | Progress Note ---
Assessment and Plan Cultures: Blood culture no growth so far Covid PCR:positive A/P: 25-year-old man past medical history nicotine abuse admitted with COVID-19 #Severe COVID-19 pneumonia: Patient presented with a week of symptoms, chest x- ray with diffuse bilateral infiltrates. Inflammatory markers elevated #Acute hypoxemic respiratory failure: Likely secondary to COVID-19 infection. On 3 L of Recs: -steroids for 10 days -Remdesivir for 5 days -Procalcitonin low, antibiotics stopped -Anticoagulation per hospital protocol -Proning as able Thank you for the consult, we will continue to follow. Mike Brown MD [facility] O: [phone] F: [phone] Subjective Date of service: 12/20/20 Interval history: Afebrile, normal white count. Remains on 3 L nasal cannula Objective - Exam Narrative Exam: Physical exam deferred to reduce risk of transmission of COVID-19. Please refer to primary team's note. - Constitutional Vitals: Vital Signs Temp Pulse Resp BP Pulse Ox 98.6 F 69 18 111/70 99 12/20/20 04:21 12/20/20 04:21 12/20/20 04:21 12/20/20 04:21 12/20/20 04:21 Temperature -Last 24 Hours Temperature 98.6 F Temperature 98.1 F Temperature 98.7 F Temperature 99.5 F - Labs CBC & Chem 7: 12/17/20 18:34 12/20/20 04:56 Labs: Abnormal lab results 12/19/20 12/20/20 12/20/20 Range/Units 10:29 04:56 08:45 D-Dimer 408.57 H (0-234) ng/mlDDU Carbon Dioxide 31 H (22-30) mmol/L Creatinine 0.7 L (0.8-1.3) mg/dL Glucose 106 H 113 H (75-100) mg/dL Lactate Dehydrogenase (91-180) units/L C-Reactive Protein (0.00-1.30) mg/dL Albumin 3.4 L 3.4 L (3.9-5) g/dL 12/20/20 Range/Units 08:45 D-Dimer (0-234) ng/mlDDU Carbon Dioxide (22-30) mmol/L Creatinine (0.8-1.3) mg/dL Glucose (75-100) mg/dL Lactate Dehydrogenase 245 H (91-180) units/L C-Reactive Protein 8.30 H (0.00-1.30) mg/dL Albumin (3.9-5) g/dL
[2020-12-20] MEDS: SODIUM CHLORIDE 0.9% 50 ML IVPB IV SCH (21:12)
[2020-12-20] MEDS: REMDESIVIR 100 MG in SODIUM CHLORIDE 0.9% 250ML 250 ML IV SCH (21:12)
[2020-12-21 06:53] LABS: Alanine Aminotransferase 51 units/L (7-56); Albumin 3.6 g/dL (3.9-5); Blood Urea Nitrogen 14 mg/dL (9-20); Calcium 8.8 mg/dL (8.4-10.2); Hemolysis Index 0
[2020-12-21 07:02] LABS: BUN/Creatinine Ratio 20
[2020-12-21] MEDS: dexAMETHasone 4 MG/ML VIAL IV SCH (09:06)
[2020-12-21] MEDS: ZINC SULFATE 220 MG CAP PO SCH (09:06)
[2020-12-21] MEDS: guaiFENesin ER 600 MG TAB PO SCH ×2 (09:06→22:26)
[2020-12-21] MEDS: CHOLECALCIFEROL (VIT D3) 5,000 UNIT TAB PO SCH (09:06)
[2020-12-21] MEDS: DOCUSATE SODIUM 100 MG CAP PO SCH ×2 (09:06→22:26)
[2020-12-21] MEDS: ENOXAPARIN 40 MG/0.4 ML INJ SUB-Q SCH (09:06)
--- NOTE | 2020-12-21 17:18 | Progress Note ---
Assessment and Plan Assessment and plan: -Acute hypoxic respiratory failure -No Baseline home oxygen requirements -Saturation of 86 to percent on room air -Currently on 3L continuous supplemental O2 Add dexamethasone 6 mg for 10 days Home O2 evaluation --COVID-19 infection; Unvaccinated patient Continue isolation ID following Continue management per COVID-19 guidelines Hypoxia requiring 3 L of nasal cannula oxygen At dexamethasone, continue remdesivir per protocol Inflammatory markers Prone positioning Home O2 evaluation Supportive medications zinc vitamin D and vitamin C --Bilateral pneumonia Chest x-ray shows Severe multifocal bilateral airspace pneumonia present Empiric antibiotics discontinued as procalcitonin is normal Follow cultures supportive care --Nicotine dependence Smoking cessation counseling done Nicotine patch as needed --DVT prophylaxis PPX Continue subcu Lovenox Continue guideline therapy for COVID-19, follow clinically DC planning per case management when patient is stable Plan of care reviewed with the patient and his nurse 12/18/2020: Patient reports the onset of symptoms since 10 days and shortness of breath since 3 days. He is anorexic with cough and dyspnea. Poorly eating. O2 increased from 3 to 5 L currently. Has significant dyspnea with conversation. Patient will be monitored closely for worsening hypoxia and respiratory compensation. Continue supplemental oxygen, Decadron and incentive spirometry as tolerated. Consider remdesivir. ID consulted. Discussed with the patient and the nursing staff. 12/19/2020: Patient is experiencing moderate difficulty breathing. Became her hypoxic and able to increased from 3 to 10 L. Currently weaned back to 4 L. In moderate respiratory distress with talking. Unable to tolerate exertion. Not able to eat due to dyspnea. Desaturating with cough spells. Remdesivir started. Otherwise hemodynamically stable. Mentating well. Needs to be monitored closely for further worsening of hypoxia and respiratory decompensation. Appears to be a candidate for Actemra and await ID recommendations who is following. Discussed the patient. 12/20/2020; patient is on 3 L of nasal cannula oxygen, on steroids and remdesivir Closely monitor, follow inflammatory markers Prone positioning; Home O2 evaluation 12/21/2020; Patient continues to be on 3 L nasal cannula oxygen Continue steroid and remdesivir per protocol Home O2 evaluation at discharge, advised prone positioning History Interval history: Seen and examined the patient at the bedside Isolation precautions PPE protocols observed Patient feels slightly better still has mild shortness of breath on nasal cannula oxygen Hospitalist Physical - Constitutional Vitals: Temp Pulse Resp BP Pulse Ox 98.1 F 66 18 117/75 96 12/21/20 11:01 12/21/20 11:01 12/21/20 11:09 12/21/20 11:01 12/21/20 11:09 General appearance: Present: no acute distress, well-nourished, other (Anxious at multiple respiratory distress) - EENT Eyes: Present: PERRL, EOM intact - Neck Neck: Present: supple, normal ROM - Respiratory Respiratory effort: normal Respiratory: bilateral: diminished, rhonchi, negative: rales, wheezing - Cardiovascular Rhythm: regular Heart Sounds: Present: S1 & S2 - Extremities Extremities: no ischemia, No edema - Abdominal General gastrointestinal: soft, non-tender, non-distended, normal bowel sounds - Integumentary Integumentary: Present: clear, warm - Psychiatric Psychiatric: appropriate mood/affect, cooperative - Neurologic Neurologic: CNII-XII intact, moves all extremities HEART Score - HEART Score Troponin: Troponin T < 0.010 ng/mL (0.00-0.029) 12/20/20 08:45 Results - Labs CBC & Chem 7: 12/17/20 18:34 12/21/20 05:38 Labs: Laboratory Last Values WBC 4.9 K/mm3 (4.5-11.0) 12/17/20 18:34 RBC 5.06 M/mm3 (3.65-5.03) H 12/17/20 18:34 Hgb 15.7 gm/dl (11.8-15.2) H 12/17/20 18:34 Hct 44.5 % (35.5-45.6) 12/17/20 18:34 MCV 88 fl (84-94) 12/17/20 18:34 MCH 31 pg (28-32) 12/17/20 18:34 MCHC 35 % (32-34) H 12/17/20 18:34 RDW 12.9 % (13.2-15.2) L 12/17/20 18:34 Plt Count 171 K/mm3 (140-440) 12/17/20 18:34 Lymph % (Auto) 18.6 % (13.4-35.0) 12/17/20 18:34 [place] % (Auto) 8.1 % (0.0-7.3) H 12/17/20 18:34 Eos % (Auto) 0.0 % (0.0-4.3) 12/17/20 18:34 Baso % (Auto) 0.1 % (0.0-1.8) 12/17/20 18:34 Lymph # (Auto) 0.9 K/mm3 (1.2-5.4) L 12/17/20 18:34 [place] # (Auto) 0.4 K/mm3 (0.0-0.8) 12/17/20 18:34 Eos # (Auto) 0.0 K/mm3 (0.0-0.4) 12/17/20 18:34 Baso # (Auto) 0.0 K/mm3 (0.0-0.1) 12/17/20 18:34 Seg Neutrophils % 73.2 % (40.0-70.0) H 12/17/20 18:34 Seg Neutrophils # 3.6 K/mm3 (1.8-7.7) 12/17/20 18:34 D-Dimer 408.57 ng/mlDDU (0-234) H 12/20/20 08:45 Sodium 141 mmol/L (137-145) 12/21/20 05:38 Potassium 4.4 mmol/L (3.6-5.0) 12/21/20 05:38 Chloride 102.9 mmol/L (98-107) 12/21/20 05:38 Carbon Dioxide 29 mmol/L (22-30) 12/21/20 05:38 Anion Gap 14 mmol/L 12/21/20 05:38 BUN 14 mg/dL (9-20) 12/21/20 05:38 Creatinine 0.7 mg/dL (0.8-1.3) L 12/21/20 05:38 Estimated GFR > 60 ml/min 12/21/20 05:38 BUN/Creatinine Ratio 20 % 12/21/20 05:38 Glucose 116 mg/dL (75-100) H 12/21/20 05:38 Lactic Acid 1.40 mmol/L (0.7-2.0) 12/18/20 08:44 Calcium 8.8 mg/dL (8.4-10.2) 12/21/20 05:38 Ferritin 481.5 ng/mL (30.0-300.0) H 12/17/20 21:58 Total Bilirubin 0.30 mg/dL (0.1-1.2) 12/21/20 05:38 AST 33 units/L (5-40) 12/21/20 05:38 ALT 51 units/L (7-56) 12/21/20 05:38 Alkaline Phosphatase 61 units/L (35-129) 12/21/20 05:38 Lactate Dehydrogenase 245 units/L (91-180) H 12/20/20 08:45 Troponin T < 0.010 ng/mL (0.00-0.029) 12/20/20 08:45 C-Reactive Protein 8.30 mg/dL (0.00-1.30) H 12/20/20 08:45 Total Protein 7.2 g/dL (6.3-8.2) 12/21/20 05:38 Albumin 3.6 g/dL (3.9-5) L 12/21/20 05:38 Albumin/Globulin Ratio 1.0 % 12/21/20 05:38 Procalcitonin < 0.05 ng/mL (<0.15) 12/17/20 21:58 Urine Color Yellow (Yellow) 12/19/20 06:55 Urine Turbidity Clear (Clear) 12/19/20 06:55 Urine pH 6.0 (5.0-7.0) 12/19/20 06:55 Ur Specific [place] 1.028 (1.003-1.030) 12/19/20 06:55 Urine Protein 30 mg/dl mg/dL (Negative) 12/19/20 06:55 Urine Glucose (UA) Neg mg/dL (Negative) 12/19/20 06:55 Urine Ketones Neg mg/dL (Negative) 12/19/20 06:55 Urine Blood Neg (Negative) 12/19/20 06:55 Urine Nitrite Neg (Negative) 12/19/20 06:55 Urine Bilirubin Neg (Negative) 12/19/20 06:55 Urine Urobilinogen < 2.0 mg/dL (<2.0) 12/19/20 06:55 Ur Leukocyte Esterase Neg (Negative) 12/19/20 06:55 Urine WBC (Auto) 2.0 /HPF (0.0-6.0) 12/19/20 06:55 Urine RBC (Auto) 3.0 /HPF (0.0-6.0) 12/19/20 06:55 Urine Mucus 3+ /HPF 12/19/20 06:55 Coronavirus (PCR) Positive (Negative) A 12/18/20 Unknown Microbiology: Microbiology 12/17/20 21:58 Peripheral/Venous Blood Culture - Preliminary NO GROWTH AFTER 72 HOURS 12/17/20 21:58 Peripheral/Venous Blood Culture - Preliminary NO GROWTH AFTER 72 HOURS Sorto/IV: Voiding Method Urinal Active Medications - Current Medications Current Medications: Generic Name Dose Route Start Last Admin Trade Name Freq PRN Reason Stop Dose Admin Acetaminophen 650 mg 12/17/20 23:46 12/20/20 19:40 Acetaminophen 325 Mg Tab PO 650 mg Q4H PRN Administration Pain MILD(1-3)/Fever >100.5/ARCOS Albuterol 2 puff 12/17/20 23:49 Albuterol 8.5 Gm Mdi Inhalation IH Q4HRT PRN Shortness Of Breath Cholecalciferol 5,000 unit 12/18/20 10:00 12/21/20 09:06 Cholecalciferol (Vit D3) 5,000 Unit Tab PO 5,000 unit DAILY RACHEL Administration Dexamethasone 6 mg 12/20/20 10:00 12/21/20 09:06 Dexamethasone 4 Mg/Ml Vial IV 12/30/20 09:59 6 mg DAILY RACHEL Administration Docusate Sodium 100 mg 12/18/20 10:00 12/21/20 09:06 Docusate Sodium 100 Mg Cap PO 100 mg BID RACHEL Administration Enoxaparin Sodium 40 mg 12/18/20 10:00 12/21/20 09:06 Enoxaparin 40 Mg/0.4 Ml Inj SUB-Q 40 mg DAILY RACHEL Administration Protocol Guaifenesin 600 mg 12/18/20 10:00 12/21/20 09:06 Guaifenesin Er 600 Mg Tab PO 600 mg BID RACHEL Administration REMDESIVIR 100 mg/ Sodium 250 mls @ 500 mls/hr 12/20/20 21:00 12/20/20 21:12 Chloride IV 12/23/20 21:29 500 mls/hr Q24HR@2100 RACHEL Administration Ondansetron HCl 4 mg 12/17/20 23:43 Ondansetron 4 Mg/2 Ml Inj IV Q6H PRN Nausea And Vomiting Oxycodone/Acetaminophen 1 tab 12/17/20 23:44 12/19/20 14:43 Oxycodone /Acetaminophen 5-325mg Tab PO 1 tab Q6H PRN Administration Pain, Moderate (4-6) Sodium Chloride 10 ml 12/18/20 10:00 12/21/20 09:06 Sodium Chloride 0.9% 10 Ml Flush Syringe IV 10 ml BID RACHEL Administration Sodium Chloride 10 ml 12/17/20 23:46 Sodium Chloride 0.9% 10 Ml Flush Syringe IV PRN PRN LINE FLUSH Sodium Chloride 50 ml 12/19/20 12:00 12/20/20 21:12 Sodium Chloride 0.9% 50 Ml Ivpb IV 12/23/20 21:01 50 ml Q24HR@2100 RACHEL Administration Zinc Sulfate 220 mg 12/18/20 10:00 12/21/20 09:06 Zinc Sulfate 220 Mg Cap PO 220 mg QDAY RACHEL Administration
[2020-12-21] MEDS: REMDESIVIR 100 MG in SODIUM CHLORIDE 0.9% 250ML 250 ML IV SCH (22:26)
[2020-12-21] MEDS: SODIUM CHLORIDE 0.9% 50 ML IVPB IV SCH (23:00)
--- NOTE | 2020-12-22 08:50 | Consultation ---
History of Present Illness Consult date: 12/22/20 Requesting physician: KENISHA ALVES Consult reason: bradycardia History of present illness: Pt is a 25-year-old male, previously unknown to our practice, who presented with complaints of fever/chills, body aches, and SOB x 1 week. SOB associated with a non-productive cough, as well as occasional pleuritic chest pain. Pt also reported loss of smell and taste at admission. Pt was found to be COVID-positive, with radiographic evidence of bilateral PNA, and is currently being treated as such. Cardiology has been consulted for evaluation of bradycardia. Review of telemetry reveals primarily sinus rhythm in the 60-70s, with occasional sinus faustina in the 40-50s during overnight and early AM hours. No arrhythmias or events noted. Past History Past Medical History: No medical history Past Surgical History: No surgical history Social history: single, lives with family, smoking (current), full code. denies: alcohol abuse Family history: no significant family history Medications and Allergies Allergies Allergy/AdvReac Type Severity Reaction Status Date / Time No Known Allergies Allergy Verified 12/17/20 21:27 Home Medications Medication Instructions Recorded Confirmed Last Taken Type No Known Home Medications [No 12/19/20 12/19/20 Unknown History Reported Home Medications] Active Meds: Active Medications Acetaminophen (Acetaminophen 325 Mg Tab) 650 mg PO Q4H PRN PRN Reason: Pain MILD(1-3)/Fever >100.5/ARCOS Last Admin: 12/20/20 19:40 Dose: 650 mg Documented by: Albuterol (Albuterol 8.5 Gm Mdi Inhalation) 2 puff IH Q4HRT PRN PRN Reason: Shortness Of Breath Cholecalciferol (Cholecalciferol (Vit D3) 5,000 Unit Tab) 5,000 unit PO DAILY RACHEL Last Admin: 12/21/20 09:06 Dose: 5,000 unit Documented by: Dexamethasone (Dexamethasone 4 Mg/Ml Vial) 6 mg IV DAILY RACHEL Stop: 12/30/20 09:59 Last Admin: 12/21/20 09:06 Dose: 6 mg Documented by: Docusate Sodium (Docusate Sodium 100 Mg Cap) 100 mg PO BID RACHEL Last Admin: 12/21/20 22:26 Dose: 100 mg Documented by: Enoxaparin Sodium (Enoxaparin 40 Mg/0.4 Ml Inj) 40 mg SUB-Q DAILY [facility]; Protocol Last Admin: 12/21/20 09:06 Dose: 40 mg Documented by: Guaifenesin (Guaifenesin Er 600 Mg Tab) 600 mg PO BID [facility] Last Admin: 12/21/20 22:26 Dose: 600 mg Documented by: REMDESIVIR 100 mg/ Sodium (Chloride) 250 mls @ 500 mls/hr IV Q24HR@2100 [facility] Stop: 12/23/20 21:29 Last Admin: 12/21/20 22:26 Dose: 500 mls/hr Documented by: Ondansetron HCl (Ondansetron 4 Mg/2 Ml Inj) 4 mg IV Q6H PRN PRN Reason: Nausea And Vomiting Oxycodone/Acetaminophen (Oxycodone /Acetaminophen 5-325mg Tab) 1 tab PO Q6H PRN PRN Reason: Pain, Moderate (4-6) Last Admin: 12/19/20 14:43 Dose: 1 tab Documented by: Sodium Chloride (Sodium Chloride 0.9% 10 Ml Flush Syringe) 10 ml IV BID [facility] Last Admin: 12/21/20 22:26 Dose: 10 ml Documented by: Sodium Chloride (Sodium Chloride 0.9% 10 Ml Flush Syringe) 10 ml IV PRN PRN PRN Reason: LINE FLUSH Sodium Chloride (Sodium Chloride 0.9% 50 Ml Ivpb) 50 ml IV Q24HR@2100 [facility] Stop: 12/23/20 21:01 Last Admin: 12/21/20 23:00 Dose: 50 ml Documented by: Zinc Sulfate (Zinc Sulfate 220 Mg Cap) 220 mg PO QDAY [facility] Last Admin: 12/21/20 09:06 Dose: 220 mg Documented by: Review of Systems Constitutional: fever, chills, fatigue Ears, nose, mouth and throat: no nasal congestion, no sore throat Cardiovascular: chest pain, shortness of breath, dyspnea on exertion, no orthopnea, no palpitations, no edema, no syncope, no lightheadedness Respiratory: cough, shortness of breath, dyspnea on exertion Gastrointestinal: diarrhea, no abdominal pain, no nausea, no vomiting Genitourinary Male: no dysuria Musculoskeletal: no neck stiffness, no neck pain Integumentary: no rash, no wounds Neurological: no head injury, no paralysis, no parathesias, no numbness, no tingling, no seizures, no syncope, no vertigo, no headaches Endocrine: no cold intolerance, no heat intolerance, no polydipsia, no polyuria Hematologic/Lymphatic: no easy bruising, no easy bleeding Allergic/Immunologic: no anaphylaxis Physical Examination Last Vital Signs Temp 98.1 F 12/22/20 15:59 Pulse 77 12/22/20 15:59 Resp 20 12/22/20 15:59 BP 113/68 12/22/20 15:59 Pulse Ox 97 12/22/20 15:59 General appearance: no acute distress Cardiac: Positive: Reg Rate and Rhythm Results 12/17/20 18:34 12/22/20 07:52 - Imaging and Cardiology EKG: report reviewed, image reviewed - EKG Interpretation EKG: no acute changes EKG interpretations - Telemetry EKG Rhythm: Sinus Rhythm - EKG Sinus rhythms and dysrhythmias: sinus rhythm Assessment and Plan Sinus bradycardia is physiologic during overnight and early AM hours. No indication for inpatient cardiac workup at this time. Continue current mgmt of COVID-19 infection as per Primary teams. Pt seen in conjunction with Dr. Dela Cruz, who agrees with the assessment and plan of care. - Patient Problems (1) Acute respiratory failure Current Visit: Yes Status: Acute (2) Pneumonia due to COVID-19 virus Current Visit: Yes Status: Acute (3) Nicotine dependence Current Visit: Yes Status: Chronic
[2020-12-22 09:01] LABS: Alanine Aminotransferase 64 units/L (7-56); Albumin 3.5 g/dL (3.9-5); BUN/Creatinine Ratio 21; Blood Urea Nitrogen 17 mg/dL (9-20); Calcium 9.5 mg/dL (8.4-10.2); Hemolysis Index 8
[2020-12-22] MEDS: dexAMETHasone 4 MG/ML VIAL IV SCH (10:48)
[2020-12-22] MEDS: guaiFENesin ER 600 MG TAB PO SCH ×2 (10:48→22:15)
[2020-12-22] MEDS: ZINC SULFATE 220 MG CAP PO SCH (10:48)
[2020-12-22] MEDS: CHOLECALCIFEROL (VIT D3) 5,000 UNIT TAB PO SCH (10:48)
[2020-12-22] MEDS: DOCUSATE SODIUM 100 MG CAP PO SCH ×2 (10:50→22:15)
[2020-12-22] MEDS: ENOXAPARIN 40 MG/0.4 ML INJ SUB-Q SCH (10:50)
--- NOTE | 2020-12-22 14:05 | Progress Note ---
Assessment and Plan Assessment and plan: -Acute hypoxic respiratory failure -No Baseline home oxygen requirements -Saturation of 86 to percent on room air -Patient is requiring 2 to 3 L of nasal cannula O2 Today his sats on room air Continue dexamethasone 6 mg for 10 days Home O2 evaluation --COVID-19 infection; Unvaccinated patient Continue isolation ID following Continue management per COVID-19 guidelines Hypoxia requiring 3 L of nasal cannula oxygen At dexamethasone, continue remdesivir per protocol Inflammatory markers, Prone positioning Home O2 evaluation Supportive medications zinc vitamin D and vitamin C --Bilateral pneumonia Chest x-ray shows Severe multifocal bilateral airspace pneumonia present Empiric antibiotics discontinued as procalcitonin is normal Follow cultures supportive care --Nicotine dependence Smoking cessation counseling done Nicotine patch as needed --DVT prophylaxis PPX Continue subcu Lovenox Continue guideline therapy for COVID-19, follow clinically DC planning per case management when patient is stable Plan of care reviewed with the patient and his nurse 12/18/2020: Patient reports the onset of symptoms since 10 days and shortness of breath since 3 days. He is anorexic with cough and dyspnea. Poorly eating. O2 increased from 3 to 5 L currently. Has significant dyspnea with conversation. Patient will be monitored closely for worsening hypoxia and respiratory compensation. Continue supplemental oxygen, Decadron and incentive spirometry as tolerated. Consider remdesivir. ID consulted. Discussed with the patient and the nursing staff. 12/19/2020: Patient is experiencing moderate difficulty breathing. Became her hypoxic and able to increased from 3 to 10 L. Currently weaned back to 4 L. In moderate respiratory distress with talking. Unable to tolerate exertion. Not able to eat due to dyspnea. Desaturating with cough spells. Remdesivir started. Otherwise hemodynamically stable. Mentating well. Needs to be monitored closely for further worsening of hypoxia and respiratory decompensation. Appears to be a candidate for Actemra and await ID recommendations who is following. Discussed the patient. 12/20/2020; patient is on 3 L of nasal cannula oxygen, on steroids and remdesivir Closely monitor, follow inflammatory markers Prone positioning; Home O2 evaluation 12/21/2020; Patient continues to be on 3 L nasal cannula oxygen Continue steroid and remdesivir per protocol Home O2 evaluation at discharge, advised prone positioning 12/22/2020; Third dose of remdesivir today O2 requirements trending down Closely monitor the patient and adjust management as needed Home O2 evaluation, DC home tomorrow if stable History Interval history: Seen and examined the patient at the bedside Patient feels slightly better Still requiring 2 L of nasal cannula oxygen intermittently room air Patient is on remdesivir third dose today Hospitalist Physical - Constitutional Vitals: Temp Pulse Resp BP Pulse Ox 98.2 F 78 22 120/76 94 12/22/20 11:27 12/22/20 11:27 12/22/20 11:27 12/22/20 11:27 12/22/20 11:27 General appearance: Present: no acute distress, well-nourished, other (Anxious at multiple respiratory distress) - EENT Eyes: Present: PERRL, EOM intact - Neck Neck: Present: supple, normal ROM - Respiratory Respiratory effort: normal Respiratory: bilateral: diminished, negative: rales, rhonchi, wheezing - Cardiovascular Rhythm: regular Heart Sounds: Present: S1 & S2 - Extremities Extremities: no ischemia, No edema - Abdominal General gastrointestinal: soft, non-tender, non-distended, normal bowel sounds - Integumentary Integumentary: Present: clear, warm - Psychiatric Psychiatric: appropriate mood/affect, cooperative - Neurologic Neurologic: CNII-XII intact, moves all extremities HEART Score - HEART Score Troponin: Troponin T < 0.010 ng/mL (0.00-0.029) 12/20/20 08:45 Results - Labs CBC & Chem 7: 12/17/20 18:34 12/22/20 07:52 Labs: Laboratory Last Values WBC 4.9 K/mm3 (4.5-11.0) 12/17/20 18:34 RBC 5.06 M/mm3 (3.65-5.03) H 12/17/20 18:34 Hgb 15.7 gm/dl (11.8-15.2) H 12/17/20 18:34 Hct 44.5 % (35.5-45.6) 12/17/20 18:34 MCV 88 fl (84-94) 12/17/20 18:34 MCH 31 pg (28-32) 12/17/20 18:34 MCHC 35 % (32-34) H 12/17/20 18:34 RDW 12.9 % (13.2-15.2) L 12/17/20 18:34 Plt Count 171 K/mm3 (140-440) 12/17/20 18:34 Lymph % (Auto) 18.6 % (13.4-35.0) 12/17/20 18:34 [place] % (Auto) 8.1 % (0.0-7.3) H 12/17/20 18:34 Eos % (Auto) 0.0 % (0.0-4.3) 12/17/20 18:34 Baso % (Auto) 0.1 % (0.0-1.8) 12/17/20 18:34 Lymph # (Auto) 0.9 K/mm3 (1.2-5.4) L 12/17/20 18:34 [place] # (Auto) 0.4 K/mm3 (0.0-0.8) 12/17/20 18:34 Eos # (Auto) 0.0 K/mm3 (0.0-0.4) 12/17/20 18:34 Baso # (Auto) 0.0 K/mm3 (0.0-0.1) 12/17/20 18:34 Seg Neutrophils % 73.2 % (40.0-70.0) H 12/17/20 18:34 Seg Neutrophils # 3.6 K/mm3 (1.8-7.7) 12/17/20 18:34 D-Dimer 408.57 ng/mlDDU (0-234) H 12/20/20 08:45 Sodium 139 mmol/L (137-145) 12/22/20 07:52 Potassium 3.9 mmol/L (3.6-5.0) 12/22/20 07:52 Chloride 102.5 mmol/L (98-107) 12/22/20 07:52 Carbon Dioxide 30 mmol/L (22-30) 12/22/20 07:52 Anion Gap 10 mmol/L 12/22/20 07:52 BUN 17 mg/dL (9-20) 12/22/20 07:52 Creatinine 0.8 mg/dL (0.8-1.3) 12/22/20 07:52 Estimated GFR > 60 ml/min 12/22/20 07:52 BUN/Creatinine Ratio 21 % 12/22/20 07:52 Glucose 94 mg/dL (75-100) 12/22/20 07:52 Lactic Acid 1.40 mmol/L (0.7-2.0) 12/18/20 08:44 Calcium 9.5 mg/dL (8.4-10.2) 12/22/20 07:52 Ferritin 481.5 ng/mL (30.0-300.0) H 12/17/20 21:58 Total Bilirubin 0.40 mg/dL (0.1-1.2) 12/22/20 07:52 AST 40 units/L (5-40) 12/22/20 07:52 ALT 64 units/L (7-56) H 12/22/20 07:52 Alkaline Phosphatase 57 units/L (35-129) 12/22/20 07:52 Lactate Dehydrogenase 245 units/L (91-180) H 12/20/20 08:45 Troponin T < 0.010 ng/mL (0.00-0.029) 12/20/20 08:45 C-Reactive Protein 8.30 mg/dL (0.00-1.30) H 12/20/20 08:45 Total Protein 7.3 g/dL (6.3-8.2) 12/22/20 07:52 Albumin 3.5 g/dL (3.9-5) L 12/22/20 07:52 Albumin/Globulin Ratio 0.9 % 12/22/20 07:52 Procalcitonin < 0.05 ng/mL (<0.15) 12/17/20 21:58 Urine Color Yellow (Yellow) 12/19/20 06:55 Urine Turbidity Clear (Clear) 12/19/20 06:55 Urine pH 6.0 (5.0-7.0) 12/19/20 06:55 Ur Specific [employer] [place] 1.028 (1.003-1.030) 12/19/20 06:55 Urine Protein 30 mg/dl mg/dL (Negative) 12/19/20 06:55 Urine Glucose (UA) Neg mg/dL (Negative) 12/19/20 06:55 Urine Ketones Neg mg/dL (Negative) 12/19/20 06:55 Urine Blood Neg (Negative) 12/19/20 06:55 Urine Nitrite Neg (Negative) 12/19/20 06:55 Urine Bilirubin Neg (Negative) 12/19/20 06:55 Urine Urobilinogen < 2.0 mg/dL (<2.0) 12/19/20 06:55 Ur Leukocyte Esterase Neg (Negative) 12/19/20 06:55 Urine WBC (Auto) 2.0 /HPF (0.0-6.0) 12/19/20 06:55 Urine RBC (Auto) 3.0 /HPF (0.0-6.0) 12/19/20 06:55 Urine Mucus 3+ /HPF 12/19/20 06:55 Coronavirus (PCR) Positive (Negative) A 12/18/20 Unknown Microbiology: Microbiology 12/17/20 21:58 Peripheral/Venous Blood Culture - Preliminary NO GROWTH AFTER 4 DAYS 12/17/20 21:58 Peripheral/Venous Blood Culture - Preliminary NO GROWTH AFTER 4 DAYS Sorto/IV: Voiding Method Toilet Active Medications - Current Medications Current Medications: Generic Name Dose Route Start Last Admin Trade Name Freq PRN Reason Stop Dose Admin Acetaminophen 650 mg 12/17/20 23:46 12/20/20 19:40 Acetaminophen 325 Mg Tab PO 650 mg Q4H PRN Administration Pain MILD(1-3)/Fever >100.5/ARCOS Albuterol 2 puff 12/17/20 23:49 Albuterol 8.5 Gm Mdi Inhalation IH Q4HRT PRN Shortness Of Breath Cholecalciferol 5,000 unit 12/18/20 10:00 12/22/20 10:48 Cholecalciferol (Vit D3) 5,000 Unit Tab PO 5,000 unit DAILY RACHEL Administration Dexamethasone 6 mg 12/20/20 10:00 12/22/20 10:48 Dexamethasone 4 Mg/Ml Vial IV 12/30/20 09:59 6 mg DAILY RACHEL Administration Docusate Sodium 100 mg 12/18/20 10:00 12/22/20 10:50 Docusate Sodium 100 Mg Cap PO 100 mg BID RACHEL Administration Enoxaparin Sodium 40 mg 12/18/20 10:00 12/22/20 10:50 Enoxaparin 40 Mg/0.4 Ml Inj SUB-Q 40 mg DAILY RACHEL Administration Protocol Guaifenesin 600 mg 12/18/20 10:00 12/22/20 10:48 Guaifenesin Er 600 Mg Tab PO 600 mg BID RACHEL Administration REMDESIVIR 100 mg/ Sodium 250 mls @ 500 mls/hr 12/20/20 21:00 12/21/20 22:26 Chloride IV 12/23/20 21:29 500 mls/hr Q24HR@2100 RACHEL Administration Ondansetron HCl 4 mg 12/17/20 23:43 Ondansetron 4 Mg/2 Ml Inj IV Q6H PRN Nausea And Vomiting Oxycodone/Acetaminophen 1 tab 12/17/20 23:44 12/19/20 14:43 Oxycodone /Acetaminophen 5-325mg Tab PO 1 tab Q6H PRN Administration Pain, Moderate (4-6) Sodium Chloride 10 ml 12/18/20 10:00 12/22/20 10:51 Sodium Chloride 0.9% 10 Ml Flush Syringe IV 10 ml BID RACHEL Administration Sodium Chloride 10 ml 12/17/20 23:46 Sodium Chloride 0.9% 10 Ml Flush Syringe IV PRN PRN LINE FLUSH Sodium Chloride 50 ml 12/19/20 12:00 12/21/20 23:00 Sodium Chloride 0.9% 50 Ml Ivpb IV 12/23/20 21:01 50 ml Q24HR@2100 RACHEL Administration Zinc Sulfate 220 mg 12/18/20 10:00 12/22/20 10:48 Zinc Sulfate 220 Mg Cap PO 220 mg QDAY RACHEL Administration
[2020-12-22] MEDS: REMDESIVIR 100 MG in SODIUM CHLORIDE 0.9% 250ML 250 ML IV SCH (22:15)
[2020-12-22] MEDS: SODIUM CHLORIDE 0.9% 50 ML IVPB IV SCH (22:15)
[2020-12-23] MEDS: guaiFENesin ER 600 MG TAB PO SCH (09:21)
[2020-12-23] MEDS: dexAMETHasone 4 MG/ML VIAL IV SCH (09:21)
[2020-12-23] MEDS: ENOXAPARIN 40 MG/0.4 ML INJ SUB-Q SCH (09:21)
[2020-12-23] MEDS: DOCUSATE SODIUM 100 MG CAP PO SCH (09:21)
[2020-12-23] MEDS: ZINC SULFATE 220 MG CAP PO SCH (09:21)
[2020-12-23] MEDS: CHOLECALCIFEROL (VIT D3) 5,000 UNIT TAB PO SCH (09:22)
[2020-12-23] MEDS ORDERED: REMDESIVIR 100 MG in SODIUM CHLORIDE 0.9% 250ML 250 ML IV ONE (13:00)
[2020-12-23] MEDS ORDERED: SODIUM CHLORIDE 0.9% 50 ML IVPB IV ONE (14:00)
--- NOTE | 2020-12-23 14:14 | Discharge Summary ---
Providers - Providers Date of Admission: 12/17/20 23:17 Date of discharge: 12/23/20 Attending physician: KATHERINE WEBBER 12/17/20 23:44 Consult to Physician [CONS] Routine Comment: Consulting Provider: DIONNA ROSS Physician Instructions: Reason For Exam: suspected covid, bruce 12/22/20 03:51 Consult to Physician [CONS] Routine Comment: Consulting Provider: [facility] Physician Instructions: Reason For Exam: decreased heart rate Primary care physician: [employer] Hospitalization Reason for admission: Shortness of breath, generalized weakness, low-grade fever Condition: Fair Pertinent studies: X-ray bilateral pneumonia Hospital course: 25-year-old male who is an ongoing smoker with no past medical history who presents to [facility] ED with complaints of flu like symptoms and shortness of breath. Patient states that he has been experiencing fever, chills, body aches, diarrhea, loss of smell and taste x1 week. Approximately 3 days ago he developed progressively worsening shortness of breath at rest and exacerbated with exertion. Associated with productive cough and pleuritic chest pain , on presentation to the ER patient was noted to be hypoxemic saturating 86% room air, improved with nasal cannula oxygen Patient was admitted as PUI, placed on isolation, [place] PCR test was positive, follow inflammatory markers, evaluated by ID patient started Dexamethasone for total 10 days, completed 5 days of remdesivir, evaluated for home oxygen, patient was saturating well on room air both resting and ambulatory , and no indication for home oxygen Today patient is comfortable no new complaints vital signs stable Physical examination prior to discharge is unremarkable Patient was given all the instructions for per Covid guidelines by the discharge nurse . Advised to follow with primary care physician and private ID per schedule Stable at discharge r --Acute hypoxic respiratory failure; present on admission Requiring 3 to 4 L of nasal cannula oxygen Significantly improved Today patient saturates well on room air, no need for home oxygen --COVID-19 infection;Unvaccinated patient Continue isolation, completed remdesivir fibrosis, received 4 days of dexamethasone ID following Continue management per COVID-19 guidelines Hypoxia requiring 3 L of nasal cannula oxygen At dexamethasone, continue remdesivir per protocol Inflammatory markers, Prone positioning Home O2 evaluation Supportive medications zinc vitamin D and vitamin C --Bilateral pneumonia Chest x-ray shows Severe multifocal bilateral airspace pneumonia present Empiric antibiotics discontinued as procalcitonin is normal Follow cultures supportive care --Nicotine dependence Smoking cessation counseling done Nicotine patch as needed Disposition: 01 HOME / SELF CARE / HOMELESS Final Discharge Diagnosis (Prints w/discharge instructions): Acute hypoxic respiratory failure[requiring 3L nasal cannula oxygen]. COVID-19 infection. COVID-19 bilateral pneumonia. Nicotine dependence Time spent for discharge: 35 min Core Measure Documentation - Palliative Care Palliative Care/ Comfort Measures: Not Applicable - Core Measures Any of the following diagnoses?: none Exam - Constitutional Vitals: Temp Pulse Resp BP Pulse Ox 98.6 F 74 18 114/73 95 12/23/20 11:42 12/23/20 11:42 12/23/20 11:42 12/23/20 11:42 12/23/20 11:42 General appearance: Present: no acute distress, well-nourished - EENT Eyes: Present: PERRL, EOM intact - Neck Neck: Present: supple, normal ROM - Respiratory Respiratory effort: normal, pursed lips - Cardiovascular Rhythm: regular Heart Sounds: Present: S1 & S2 - Extremities Extremities: no ischemia, No edema - Abdominal General gastrointestinal: Present: soft, non-tender, non-distended, normal bowel sounds - Integumentary Integumentary: Present: clear, warm - Musculoskeletal Musculoskeletal: strength equal bilaterally - Psychiatric Psychiatric: appropriate mood/affect, cooperative - Neurologic Neurologic: moves all extremities Plan Activity: no restrictions, other (COVID-19 protocols of quarantine/masking/social distancing per COVID-19 guidelines) Diet: regular Additional Instructions: If you have worsening symptoms contact MD or go to the nearest emergency room as needed. Advised to follow primary care physician, ID per schedule. Your oxygen saturation resting and ambulatory is more than 96%. No indication for home oxygen Follow up with: PRIMARY CARE,MD [Primary Care Provider] - 7 Days Prescriptions: Dexamethasone [Decadron] 6 mg PO DAILY #6 tablet guaiFENesin ER [Mucinex ER] 600 mg PO BID #20 tablet Ascorbic Acid [Vitamin C with Lupe Hips] 500 mg PO BID #30 tablet Cholecalciferol (Vitamin D3) [Vitamin D3] 5,000 unit PO DAILY #15 tablet Zinc Sulfate 220 mg PO QDAY #30 capsule
--- NOTE | 2020-12-23 14:24 | Electrocardiograph Report ---
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
--- NOTE | 2020-12-23 16:11 | Progress Note ---
Assessment and Plan Sinus bradycardia appears to have been physiologic during overnight and early AM hours. No further bradycardia or other arrhythmias noted on telemetry. Cardiac status is currently stable. Will sign off. Pt seen in conjunction with Dr. Dela Cruz, who agrees with the assessment and plan of care. - Patient Problems (1) Acute respiratory failure Current Visit: Yes Status: Acute (2) Pneumonia due to COVID-19 virus Current Visit: Yes Status: Acute (3) Nicotine dependence Current Visit: Yes Status: Chronic Subjective Date of service: 12/23/20 Principal diagnosis: Bradycardia Interval history: No acute events overnight. Tele reviewed - SR 70-80s, no further bradycardia. Objective Last Vital Signs Temp 98.6 F 12/23/20 11:42 Pulse 74 12/23/20 11:42 Resp 18 12/23/20 11:42 BP 114/73 12/23/20 11:42 Pulse Ox 95 12/23/20 11:42 - Imaging and Cardiology EKG: report reviewed, image reviewed - Telemetry EKG Rhythm: Sinus Rhythm - EKG Sinus rhythms and dysrhythmias: sinus bradycardia - Allied health notes Allied health notes reviewed: nursing
[2020-12-23 18:10] VITALS: BP 119/68
== END 2020-12-23 18:45 | disposition home or self-care (01) | DRG 177 ==
LOC: ED 18:00 → 3A 23:17
PROVIDERS: ADMIT Internal Medicine Geriatric Medicine; ATTEND Internal Medicine
PROC: XW033E5 Introduction of Remdesivir Anti-infective into Peripheral Vein, Percutaneous Approach, New Technology Group 5 (ICD-10-PCS; principal; 2020-12-19)
DX: U07.1 COVID-19 (principal); J12.82 Pneumonia due to coronavirus disease 2019; J96.01 Acute respiratory failure with hypoxia; F17.200 Nicotine dependence, unspecified, uncomplicated; Z71.6 Tobacco abuse counseling; R00.1 Bradycardia, unspecified
CPT/HCPCS: 36415; 71046; 80053; 81001; 82140; 82728; 82947; 83615; 84145; 84484; 85025; 85379; 86140; 87040; 93005; 94760; G0378; J0456; J0696; J1100; J1650; J7030; J7050; U0003